=== PATIENT | male | born 1985 ===

== ENCOUNTER 2016-07-12 02:07 | Inpatient (IN) ==
[2016-07-12] MEDS ORDERED: ONDANSETRON 4 MG/2 ML VIAL IV STA (03:02)
[2016-07-12] MEDS ORDERED: HYDROmorphone 2 MG/1 ML VIAL IV STA (03:02)
[2016-07-12 03:07] LABS: Basophils # 0.1 10*3/uL (0.0-0.2); Basophils % 0.3 % (0.0-0.8); Eosinophils # 0.1 10*3/uL (0.0-0.87); Eosinophils % 0.3 % (0.00-10.9); Hematocrit 48.8 VOL% (42.0-52.0); Hemoglobin 16.4 GM/DL (14.0-18.0); Immature Granulocytes % 0.8 %; Lymphocytes # 2.5 10*3/uL (1.4-4.0); Lymphocytes % 10.2 % (21.2-54.2); Mean Corpuscular HGB Conc 33.6 GM/DL (32-36); Mean Corpuscular Hemoglobin 29 PG (27-34); Mean Corpuscular Volume 87.3 FL (87-102); Mean Platelet Volume 13.2 FL (9.6-12.0); Monocytes # 1.7 10*3/uL (0.11-0.8); Neutrophils # 19.7 10*3/uL (1.4-7.4); Neutrophils % 81.4 % (38.7-73.9); Platelet Count 143 T/CUMM (130-400); Red Blood Count 5.59 MC/CUMM (3.8-5.5); Red Cell Distribution Width 12.6 % (9.3-17.3); White Blood Count 24.2 T/CUMM (4-12)
[2016-07-12 03:23] LABS: Apearance,Urine CLEAR (Clear); Bilirubin,Urine Negative (Negative); Blood, Urine Moderate mg/dL (Negative); Glucose,Urine (UA) >=500 mg/dL (Negative); Ketones,Urine 20 mg/dL (Negative); Nitrite,Urine Negative (Negative); Protein,Urine 30 MG/DL; RBC,Urine 1 /HPF (0-4); Urine Color Yellow (Yellow); Urine Specific Gravity 1.017 (1.001-1.035); Urine Urobilinogen < 2.0 EU/DL (0.2-1.0); WBC,Urine 1 /HPF (0-6)
[2016-07-12 03:42] LABS: Band Neutrophils 3 % (0-10); Lymphocytes 12 % (20-55); Metamyelocytes 1 %; Platelet Estimate Normal; Segmented Neutrophils 77 % (50-85); Total Cells Counted 100
[2016-07-12] MEDS ORDERED: HYDROmorphone 2 MG/1 ML VIAL ONE (03:59)
[2016-07-12] MEDS ORDERED: ONDANSETRON 4 MG/2 ML VIAL ONE (04:00)
[2016-07-12] MEDS ORDERED: HYDROmorphone 2 MG/1 ML VIAL IV PRN (04:11)
--- NOTE | 2016-07-12 04:11 | Emergency Department Note ---
Iraida Teresa Sierra, am scribing for, and in the presence of, Akua Gil DO 03:04. Jeffery Teresa Catherine, DO, personally performed the services described in this documentation, ascribed by Maureen Khoury in my presence, and it is both accurate and complete 411 . Arrival - Arrival Chief Complaint: Abdominal / Flank Pain ED Nursing Triage Note: C/O RLQ abd pain. Onset Tuesday worsening tonight. Pt was seen at [facility] and a CT scan was performed that showed a perforated appendix. Pt was given 1 gram Rocephin [employer] RO[employer] HELPER Mode of Arrival: Stretcher Limitations: No Limitations Source: Patient Time Seen by Provider: 07/12/16 02:26 - History of Present Illness HPI Narrative: Pt is a 31 y/o male that was transferred to the ED from [facility] via EMS with c/o RLQ abdominal pain that has worsened for 4 days now. Pt was seen at [facility] and a CT scan was preformed that indicated a perforated appendix. Pt denies any medical problems or taking daily medications. Pt denies alcohol or drug uses but admits he smokes about a pack per day of cigarettes. Pt states he was given morphine at [facility]. No other complaints/pain in ED. Onset (ago): day(s) Consistency: constant Severity: moderate Severity scale (1-10): 6 Quality: sharp Allergies/Adverse Reactions: Allergies Allergy/AdvReac Type Severity Reaction Status Date / Time Penicillins Allergy Intermediate RASH Verified 07/12/16 02:22 Home Medications: Home Medications Medication Instructions Recorded Confirmed Type No Known Home Medications [No 07/12/16 07/12/16 History Known Home Medications] Review of System - Review of System 12 point system: reviewed and no additional remarkable complaints except as stated - Review of System Constitutional: Absent: chills, fever Respiratory: Absent: cough Cardiovascular: Absent: chest pain Gastrointestinal: Present: abdominal pain (RLQ abdominal pain), nausea. Absent : vomiting, diarrhea Musculoskeletal: Absent: arm pain, back pain, leg pain, neck pain Skin: Absent: rash Neurological: Absent: headache Psychiatric: Absent: anxiety Medical,Surgical,& Family Hx - Medical History Medical History: noncontributory - Surgical History Surgical History: noncontributory - Family History Family History: noncontributory - Social History Smoking Status: Current every day smoker Frequency of Alcohol Use: None Type of Drug Use: None Marital Status: Unknown Functional capacity: independent ambulation Exam Vital Signs: Vital Signs Temperature 98.3 F 07/12/16 02:07 Pulse Rate 100 H 07/12/16 02:07 Respiratory Rate 20 07/12/16 02:07 Blood Pressure 139/87 07/12/16 02:07 O2 Sat by Pulse Oximetry 99 07/12/16 02:07 - General General appearance: alert, in no apparent distress - Head Head exam: Present: atraumatic, normocephalic - Eye Eye exam: Present: PERRL, EOMI - ENT ENT exam: Present: mucous membranes moist. Absent: mucous membranes dry - Neck Neck exam: Present: full ROM. Absent: tenderness - Chest Chest inspection: Present: symmetric chest wall rise. Absent: tenderness - Respiratory Respiratory exam: Present: normal lung sounds bilaterally. Absent: respiratory distress - Cardiovascular Cardiovascular exam: Present: regular rate, normal rhythm, normal heart sounds - Abdominal Exam Abdominal exam: Present: soft, tenderness (RLQ tenderness), normal bowel sounds. Absent: distention, guarding, rebound, diminished bowel sounds - Extremities Exam Extremities exam: Present: full ROM. Absent: tenderness - Back Exam Back exam: Present: normal inspection, full ROM. Absent: tenderness - Neurological Exam Neurological exam: Present: alert, oriented X3, CN II-XII intact. Absent: motor sensory deficit - Psychiatric Psychiatric exam: Present: normal affect, normal mood - Skin Skin exam: Present: warm, dry Course Course Narrative: This is a 31-year-old male who is transported down here from the [facility] for evaluation of a perforated appendix. The patient states that he began having pain on Tuesday evening. He did not seek medical care until today. He stated he just had continued pain he said some nausea and some vomiting. He denies any fever or chills he has no other medical problems. Physical exam the patient is awake and alert his vital signs are stable HEENT exam is normal his neck is supple heart is regular rate and rhythm his lungs are clear in the anterior thompson abdomen is rounded soft he has tenderness localized to the right lower quadrant does have pain to deep palpation. His bowel sounds are infrequent. His extremities are intact neurologic exam is nonfocal. Treatment I repeated his lab work was started some IV fluids he did receive some pain meds. I spoke to the surgeon electrician supervisor substation about his CT findings which do show a ruptured appendix. We will be placing him inside the hospital on IV antibiotics for further surgical evaluation. - Consultations Consultation #1: Dr. Castillo has accepted the patient for admission at this time. Time: 04:10 Results - Labs CBC & BMP: 07/12/16 02:14 Lab Results: I have reviewed the patients labs Labs: Laboratory Tests 07/12/16 02:14 WBC 24.2 H RBC 5.59 H MPV 13.2 H Neut % (Auto) 81.4 H Lymph % (Auto) 10.2 L Neut # (Auto) 19.7 H [place] # (Auto) 1.7 H Laboratory Tests 07/12/16 03:02 Urine Color Yellow Urine Appearance Clear Urine pH 6.0 Ur Specific [place] 1.017 Urine Protein 30 Urine Glucose (UA) >=500 Urine Ketones 20 Urine Blood Moderate Urine Nitrate Negative Urine Bilirubin Negative Urine Urobilinogen < 2.0 H Urine Leukocytes Negative Urine RBC 1 Urine WBC 1 Laboratory Tests 07/12/16 02:14 Lymphocytes 12 L - Diagnostic Findings Procedure: CT Abdomen and Pelvis: report reviewed by me (ruptured appendix) Disposition Clinical Impression: Ruptured appendix Case discussed with: patient Disposition: Still a Patient Condition: Stable Time of Disposition: 04:11
[2016-07-12 04:21] LABS: Lactic Acid 1.4 MMOL/L (0.4-2.0)
[2016-07-12 04:22] LABS: Albumin 3.5 G/DL (3.4-5.0); Bilirubin,Total 1.3 MG/DL (0.2-1.0); Calcium 8.2 MG/DL (8.5-10.1); Magnesium 2.2 MG/DL (1.8-2.4); Osmolality,Calculated 267.7 MOS/KG (273-304); Total Protein 7.6 G/DL (6.4-8.3)
[2016-07-12] MEDS: SODIUM CHLORIDE 0.9% 1,000 ML IV SCH ×3 (05:11→23:35)
--- NOTE | 2016-07-12 06:57 | General Surg History&Physical ---
Assessment and Plan - Time spent with patient Time spent with patient: Less than 30 minutes (1) Acute appendicitis with appendiceal abscess Status: Acute Assessment and plan: This appears to represent a subacute appendicitis with periappendiceal phlegmon and early abscess formation. I discussed the options for treatment with the patient and his family. I have recommended against going straight ahead for surgery and have recommended a trial of treatment with antibiotics to see if we can treat the periappendicitis and then look at possibly later interval appendectomy. I explained that his course of treatment will be guided by his clinical response. We will probably get a follow-up CT scan over the next few days to see if this is responding her see if this is coalesced into a discrete abscess that could be drained. I am worried that acute surgical intervention in this morbidly obese patient could result in bowel injury or at best a large open wound in his lower abdominal wall pannus. They are in agreement with the plan which they understand can change based on whether or not he responds clinically Current Visit: Yes History of Present Illness Chief complaint: abdominal pain History of present illness: Mr. Kelsey is a 31 year old male With 4 days of abdominal pain that started in his upper mid abdomen and then localized in his right lower quadrant. This pain is constant and moderate in severity. The pain does not radiate. It is worse if he moves and feels better if he lays still. He has had less appetite but has not had nausea or vomiting. He states that he has had some fever and maybe some chills. He had a CT scan done at [facility] and they did not send down the images but the report stated that there was an appendiceal phlegmon. Home Medications Medication Instructions Recorded Confirmed Type No Known Home Medications [No 07/12/16 07/12/16 History Known Home Medications] Allergies Allergy/AdvReac Type Severity Reaction Status Date / Time Penicillins Allergy Intermediate RASH Verified 07/12/16 02:22 Medical,Surgical,& Family Hx - Medical History Medical History: noncontributory - Surgical History Surgical History: noncontributory - Family History Family History: noncontributory - Social History Smoking Status: Current every day smoker Frequency of Alcohol Use: None Type of Drug Use: None Exam - Constitutional Vitals: Period Temp Pulse Resp BP Sys/Cardozo Pulse Ox Last 24 Hr 99.6 F 98-98 17-20 144-145/69-89 94-94 General appearance: no acute distress, morbidly obese - Head Head exam: Present: normocephalic - Eye Eye exam: Absent: scleral icterus - ENT Mouth exam: Present: normal voice - Neck Neck exam: Present: trachea midline. Absent: tenderness - Respiratory Respiratory exam: Present: clear to auscultation bilaterally. Absent: accessory muscle use - Cardiovascular Cardiovascular exam: Present: RRR - GI/Abdominal GI/Abdominal exam: Present: normal bowel sounds, mass, tenderness, soft. Absent : distended, guarding, rebound - Extremities Exam Extremities exam: Absent: edema - Neurological Exam Neurological exam: Present: alert, oriented X3. Absent: motor sensory deficit Speech: Present: normal - Skin Skin exam: Present: normal color - Constitutional Constitutional: Present: anorexia, chills, fever(s). Absent: weight loss - EENT Nose, mouth and throat: Absent: dysphagia - Cardiovascular Cardiovascular: Absent: chest pain at rest, chest pain with activity, dyspnea, dyspnea on exertion, syncope - Respiratory Respiratory: Absent: cough, dyspnea, hemoptysis, dyspnea on exertion - Gastrointestinal Gastrointestinal: Present: abdominal pain, diarrhea. Absent: hematemesis, hematochezia, melena, nausea, vomiting, jaundice - Genitourinary Genitourinary: Absent: dysuria, hematuria - Musculoskeletal Musculoskeletal: Absent: back pain - Neurological Neurological: Absent: focal weakness, syncope - Endocrine Endocrine: Absent: polyuria Hematologic/Lymphatic: Absent: easy bleeding, easy bruising Results - Labs CBC & BMP: 07/12/16 02:14 07/12/16 03:58 Lab Results: I have reviewed the past 24 hour labs
[2016-07-12] MEDS: HYDROmorphone 2 MG/1 ML VIAL IV PRN ×4 (13:35→23:39)
[2016-07-13 07:19] LABS: Basophils % 0.2 % (0.0-0.8); Eosinophils # 0.1 10*3/uL (0.0-0.87); Eosinophils % 0.6 % (0.00-10.9); Hematocrit 38.3 VOL% (42.0-52.0); Immature Granulocytes % 0.6 %; Immature Granulocytes Absolute 0.07 #; Lymphocytes # 1.7 10*3/uL (1.4-4.0); Lymphocytes % 13.4 % (21.2-54.2); Mean Corpuscular HGB Conc 33.7 GM/DL (32-36); Mean Corpuscular Hemoglobin 29 PG (27-34); Mean Corpuscular Volume 86.8 FL (87-102); Mean Platelet Volume 12.5 FL (9.6-12.0); Monocytes # 1.2 10*3/uL (0.11-0.8); Monocytes % 9.4 % (1.7-12.7); Neutrophils # 9.7 10*3/uL (1.4-7.4); Neutrophils % 75.8 % (38.7-73.9); Platelet Count 119 T/CUMM (130-400); Red Blood Count 4.41 MC/CUMM (3.8-5.5); Red Cell Distribution Width 12.2 % (9.3-17.3)
--- NOTE | 2016-07-13 07:22 | General Surgery Progress Note ---
Assessment and Plan (1) Acute appendicitis with appendiceal abscess Status: Acute Assessment and plan: This appears to represent a subacute appendicitis with periappendiceal phlegmon and early abscess formation. I discussed the options for treatment with the patient and his family. I have recommended against going straight ahead for surgery and have recommended a trial of treatment with antibiotics to see if we can treat the periappendicitis and then look at possibly later interval appendectomy. I explained that his course of treatment will be guided by his clinical response. We will probably get a follow-up CT scan over the next few days to see if this is responding her see if this is coalesced into a discrete abscess that could be drained. I am worried that acute surgical intervention in this morbidly obese patient could result in bowel injury or at best a large open wound in his lower abdominal wall pannus. They are in agreement with the plan which they understand can change based on whether or not he responds clinically 07/13: He feels a little better and has less pain but still has right lower quadrant pain and tenderness that is less than yesterday. There is less fullness overall but this is difficult to appreciate because of his severe morbid obesity. I'm going to check a follow-up CT scan. He is had low-grade temperature. We will see if he has a well-defined abscess to drain. This will be better if we could treat him with drainage and antibiotics rather than initial surgery as I suspect that we would require an open procedure and a very difficult case probably a large open wound in this morbidly obese patient. I fear that this could cause a great deal of morbidity. Current Visit: Yes Subjective Patient reports: Present: feels better, still having pain, pain is less, fever. Absent: nausea, vomiting Exam - Constitutional Vitals: Period Temp Pulse Resp BP Sys/Cardozo Pulse Ox Last 24 Hr 98.2 F-100.4 F 93-106 18-20 112-136/54-73 97-99 General appearance: no acute distress, morbidly obese - Eye Eye exam: Absent: scleral icterus - ENT Mouth exam: Present: normal voice - Respiratory Respiratory exam: Present: clear to auscultation bilaterally. Absent: accessory muscle use - GI/Abdominal GI/Abdominal exam: Present: tenderness, soft. Absent: distended, mass, rebound - Neurological Exam Neurological exam: Present: alert, oriented X3 Results - Labs CBC & BMP: 07/12/16 02:14 07/12/16 03:58 Lab Results: I have reviewed the past 24 hour labs
[2016-07-13 07:28] LABS: Hemoglobin 12.9 GM/DL (14.0-18.0); White Blood Count 12.7 T/CUMM (4-12)
[2016-07-13] MEDS: SODIUM CHLORIDE 0.9% 1,000 ML IV SCH ×2 (07:44→22:18)
[2016-07-13 07:45] LABS: Calcium 7.5 MG/DL (8.5-10.1); Osmolality,Calculated 271.1 MOS/KG (273-304); Potassium 3.8 MMOL/L (3.5-5.1)
[2016-07-13] MEDS: HYDROmorphone 2 MG/1 ML VIAL IV PRN ×4 (07:46→22:17)
[2016-07-13] MEDS: ONDANSETRON 4 MG/2 ML VIAL IV PRN (08:42)
--- NOTE | 2016-07-13 10:33 | CT Report ---
CT abdomen pelvis Indication: Appendiceal abscess Comparison: 11 July 2016 Technique: Axial CT imaging of the abdomen and pelvis is performed with intravenous and oral contrast. Contrast dose is 100 cc of Omnipaque 350. Findings: Cardiac and lung bases are within normal limits CT abdomen: The liver spleen pancreas and adrenal glands are normal in size and enhancement. No evidence of focal lesion is demonstrated in these solid organs. Kidneys are normal in size and enhancement. No evidence of hydronephrosis or nephrolithiasis is seen. There is an enlarging abscess with air-fluid level in the right lower quadrant posterior to the cecum 5.2 x 3.9 cm. Previous measurement was 3.1 x 2.6 cm. Large amount of adjacent stranding is present. The appendix is not clearly seen. There is some thickening of the posterior cecum. This was present on previous exam. The bowel caliber is normal and no other wall thickening or adjacent inflammatory change is seen. No evidence of free fluid or free air is present. CT pelvis: Small amount of free fluid is seen in the pelvis. The pelvic bowel appears within normal limits. Bladder shows no evidence of abnormality. The pelvic organs show no evidence of abnormality. Impression: Enlarging abscess in the right lower quadrant as described above. This CT exam was performed using one or more the following dose reduction techniques: Automated exposure control, adjustment of the MA and/or KV according to patient size, or use of iterative reconstruction technique. PROCEDURE INTERPRETED AT [facility] DEPARTMENT OF RADIOLOGY Final Report Signed by: Dr. Bernardino Patterson
--- NOTE | 2016-07-13 14:43 | Inventional Radiology Consult ---
Assessment and Plan - Time spent with patient Time spent with patient: Less than 30 minutes (1) Acute appendicitis with appendiceal abscess Problem details: f/u CT scan shows increasing size of periappendiceal collection Status: Acute Assessment and plan: plan for CT guided drain catheter placement today Current Visit: Yes (2) Ruptured appendix Problem details: now with developing abscess Status: Acute Assessment and plan: plan for drain catheter placement today Current Visit: Yes IR Consult - Data of Consult Patient: new to practice Consult date: 07/13/16 Requesting Physician: Monico Castillo III. - Consult Narrative Reason for consult: periappendiceal abscess History of present illness: Low is a 31 year old M with right lower quadrant pain and subacute appendicitis on CT imaging. The follow up CT shows a small abscess developing. The patient is morbidly obese and surgery would like to treat with a drain, which could be much more tolerable for this patient. WBCs trending down but still with increased RLQ pain since admission. No other significant medical or surgical history. ROS otherwise negative. - Home Medications and Allergies Home Medications: Home Medications Medication Instructions Recorded Confirmed Type No Known Home Medications [No 07/12/16 07/12/16 History Known Home Medications] Allergies/Adverse Reactions: Allergies Allergy/AdvReac Type Severity Reaction Status Date / Time Penicillins Allergy Intermediate RASH Verified 07/12/16 02:22 12 point system: reviewed and no additional remarkable complaints except as stated (see HPI) Medical,Surgical,& Family Hx - Social History Smoking Status: Current every day smoker Frequency of Alcohol Use: None Type of Drug Use: None Exam - Labs CBC & BMP: 07/13/16 06:15 07/13/16 06:15 Lab Results: I have reviewed the past 24 hour labs Image Studies: CT from OSH and from [facility] - Constitutional Vitals: Period Temp Pulse Resp BP Sys/Cardozo Pulse Ox Last 24 Hr 98.2 F-100.1 F 90-100 18-20 112-147/57-78 97-99 General appearance: morbidly obese - Eye Eye exam: Present: EOMI - Respiratory Respiratory exam: Present: clear to auscultation bilaterally (distant breath sounds) - Cardiovascular Cardiovascular exam: Present: regular rate and rhythm - GI/Abdominal GI/Abdominal exam: Present: normal bowel sounds, guarding (RLQ), tenderness (RLQ ), rebound (RLQ) - Neurological Exam Neurological exam: Present: alert, oriented X3 - Psychiatric Psychiatric exam: Present: normal affect, normal mood - Skin Skin exam: Present: normal color, dry
[2016-07-13] MEDS ORDERED: MIDAZOLAM 2 MG/2 ML VIAL IV ONE (14:46)
[2016-07-13] MEDS ORDERED: fentaNYL 100 MCG/2 ML VIAL IV ONE (14:46)
[2016-07-13] MEDS ORDERED: MIDAZOLAM 2 MG/2 ML VIAL ONE (15:23)
[2016-07-13] MEDS ORDERED: fentaNYL 100 MCG/2 ML VIAL ONE (15:23)
--- NOTE | 2016-07-13 16:16 | Post Interventional Procedure ---
Pre-op diagnosis: periappendiceal abscess Post-op diagnosis: same Procedure: CT guided abscess drain placement Contrast: none Flouroscopy: none Radiologist: Pedro Caputo Anesthesia: local, conscious sedation Medications: 1 mg IV versed and 50 mcg IV Fentanyl Total Sedation Time: 15 min Specimens: other (purulent material sent for Gs/Cx) Estimated blood loss: none Complications: none Condition: stable Description/Findings: 10 Nigerien drainage catheter placed into the periappendiceal fluid/air collection. Approximately 25 mL of purulent malodorous material removed. A sample was sent for Gram stain/culture. Catheter drainage should be recorded. When output has decreased to less than 10 L per day for 2 consecutive days, consider repeat imaging prior to drain removal. Assessment and Plan - Time spent with patient Time spent with patient: Less than 30 minutes (1) Acute appendicitis with appendiceal abscess Problem details: f/u CT scan shows increasing size of periappendiceal collection Status: Acute Assessment and plan: plan for CT guided drain catheter placement today Current Visit: Yes (2) Ruptured appendix Problem details: now with developing abscess Status: Acute Assessment and plan: plan for drain catheter placement today Current Visit: Yes
--- NOTE | 2016-07-13 16:24 | CT Report ---
CT abscess drainage appendicea Abscess drainage using CT guidance Clinical Information: 31-year-old male with morbid obesity and subacute appendicitis with right lower quadrant pain. Follow-up CT scanning performed today shows enlargement of the periappendiceal abscess/fluid collection within the right lower quadrant. Surgery suggests this to be a difficult case given the patient's morbid obesity and has requested percutaneous drainage. Physician[s]: Dr. Caputo Procedure: The patient was advised of the benefits, risks, and alternatives of the procedure and informed consent was obtained. A time out was performed with verification of the patient's name, MRN, site of procedure, and type of procedure to be performed. Moderate sedation was performed by the physician including the presence of an independent trained observer that assisted in monitoring the patient's level of consciousness and physiological status. Following the administration of 1 mg intravenous Versed and 50 mcg intravenous fentanyl and the physician spent 30 minutes of continuous [id number] time with the patient. The patient was placed in the supine on the CT gantry and a scan was performed through the region of interest. This demonstrates stranding throughout the right lower quadrant mesenteric fat and the perivesicle fluid collection with layering air, as seen on prior diagnostic imaging. After marking the overlying skin, the patient was prepped and draped in the usual sterile fashion. The soft tissues overlying the anticipated puncture site were anesthetized with lidocaine. Through this anesthetized region, a 20 G AccuStick needle was passed into the fluid collection with intermittent CT fluoroscopic guidance. Malodorous purulent material was aspirated. An Amplatz wire was advanced into the fluid collection, over which a 10 Amharic Cook all-purpose drain was passed. A fluid specimen was aspirated. Subsequent localized CT-scanning was performed to confirm the catheter location. The catheter was then locked, sutured in position with Percu-Stay device and placed to gravity drainage. The fluid specimen was labeled with the patient's name and medical record number and sent to the laboratory for further analysis. The patient tolerated the procedure well and was returned to the PRU in stable condition. EBL: < 5 mL. Complications: None. Total number of images for this study: 216 Conclusion: 1. Successful placement of a10 Amharic pigtail drain in a right lower quadrant periappendiceal fluid collection. 2. The catheter should be flushed with 10 ml of normal saline every 24 hours. Drainage should be recorded q. shift minus flush. 3. The primary team should contact Interventional Radiology when output is less than 10 ml per day for two consecutive days. PROCEDURE INTERPRETED AT [facility] DEPARTMENT OF RADIOLOGY Final Report Signed by: Pedro Caputo
[2016-07-13] MEDS ORDERED: HYDROmorphone 2 MG/1 ML VIAL IV ONE (18:26)
[2016-07-13] MEDS: KETOROLAC 30 MG/1 ML VIAL IV SCH (18:35)
[2016-07-13] MEDS: ACETAMINOPHEN 325 MG TABLET PO PRN (18:36)
[2016-07-14] MEDS: KETOROLAC 30 MG/1 ML VIAL IV SCH ×4 (01:32→17:40)
[2016-07-14] MEDS: HYDROmorphone 2 MG/1 ML VIAL IV PRN ×5 (01:33→22:28)
[2016-07-14] MEDS: ACETAMINOPHEN 325 MG TABLET PO PRN ×2 (02:24→17:03)
[2016-07-14] MEDS: ONDANSETRON 4 MG/2 ML VIAL IV PRN (03:54)
[2016-07-14] MEDS: SODIUM CHLORIDE 0.9% 1,000 ML IV SCH ×2 (05:33→11:50)
[2016-07-14 06:55] LABS: Basophils % 0.3 % (0.0-0.8); Eosinophils % 0.1 % (0.00-10.9); Hematocrit 37.6 VOL% (42.0-52.0); Hemoglobin 12.6 GM/DL (14.0-18.0); Immature Granulocytes % 0.7 %; Immature Granulocytes Absolute 0.11 #; Lymphocytes # 0.9 10*3/uL (1.4-4.0); Lymphocytes % 5.7 % (21.2-54.2); Mean Corpuscular HGB Conc 33.5 GM/DL (32-36); Mean Corpuscular Hemoglobin 30 PG (27-34); Mean Corpuscular Volume 88.1 FL (87-102); Mean Platelet Volume 11.7 FL (9.6-12.0); Monocytes # 1.1 10*3/uL (0.11-0.8); Neutrophils # 13.4 10*3/uL (1.4-7.4); Neutrophils % 86.2 % (38.7-73.9); Platelet Count 124 T/CUMM (130-400); Red Blood Count 4.27 MC/CUMM (3.8-5.5); Red Cell Distribution Width 12.1 % (9.3-17.3); White Blood Count 15.5 T/CUMM (4-12)
[2016-07-14 07:20] LABS: Calcium 7.6 MG/DL (8.5-10.1); Osmolality,Calculated 269.5 MOS/KG (273-304); Potassium 3.7 MMOL/L (3.5-5.1)
--- NOTE | 2016-07-14 08:18 | General Surgery Progress Note ---
Assessment and Plan (1) Acute appendicitis with appendiceal abscess Problem details: f/u CT scan shows increasing size of periappendiceal collection Status: Acute Assessment and plan: This appears to represent a subacute appendicitis with periappendiceal phlegmon and early abscess formation. I discussed the options for treatment with the patient and his family. I have recommended against going straight ahead for surgery and have recommended a trial of treatment with antibiotics to see if we can treat the periappendicitis and then look at possibly later interval appendectomy. I explained that his course of treatment will be guided by his clinical response. We will probably get a follow-up CT scan over the next few days to see if this is responding her see if this is coalesced into a discrete abscess that could be drained. I am worried that acute surgical intervention in this morbidly obese patient could result in bowel injury or at best a large open wound in his lower abdominal wall pannus. They are in agreement with the plan which they understand can change based on whether or not he responds clinically 07/13: He feels a little better and has less pain but still has right lower quadrant pain and tenderness that is less than yesterday. There is less fullness overall but this is difficult to appreciate because of his severe morbid obesity. I'm going to check a follow-up CT scan. He is had low-grade temperature. We will see if he has a well-defined abscess to drain. This will be better if we could treat him with drainage and antibiotics rather than initial surgery as I suspect that we would require an open procedure and a very difficult case probably a large open wound in this morbidly obese patient. I fear that this could cause a great deal of morbidity. 07/14: He feels better and has much less abdominal pain since his percutaneous drainage. The mass effect and tenderness in his right side has diminished. He is hungry. He is had fever which is not surprising. We will continue IV antibiotics. We should get some cultures back on the drainage fluid. He is hungry and I think we can go ahead and try a diet. Current Visit: Yes Subjective Patient reports: Present: feels better, pain is less, fever. Absent: nausea, vomiting, shortness of breath Exam - Constitutional Vitals: Period Temp Pulse Resp BP Sys/Cardozo Pulse Ox Last 24 Hr 98.8 F-103 F 86-115 16-20 118-153/50-84 95-100 General appearance: no acute distress, morbidly obese - Eye Eye exam: Absent: scleral icterus - Respiratory Respiratory exam: Absent: accessory muscle use - GI/Abdominal GI/Abdominal exam: Present: soft. Absent: distended, mass, tenderness Results - Labs CBC & BMP: 07/14/16 06:27 07/14/16 06:27 Lab Results: I have reviewed the past 24 hour labs
[2016-07-15] MEDS: KETOROLAC 30 MG/1 ML VIAL IV SCH ×4 (00:24→18:02)
[2016-07-15] MEDS: SODIUM CHLORIDE 0.9% 1,000 ML IV SCH ×4 (00:24→20:45)
[2016-07-15] MEDS: ACETAMINOPHEN 325 MG TABLET PO PRN (00:34)
[2016-07-15] MEDS: HYDROmorphone 2 MG/1 ML VIAL IV PRN ×6 (01:43→20:46)
[2016-07-15] MEDS: ONDANSETRON 4 MG/2 ML VIAL IV PRN (04:59)
--- NOTE | 2016-07-15 10:41 | General Surgery Progress Note ---
Assessment and Plan (1) Acute appendicitis with appendiceal abscess Problem details: f/u CT scan shows increasing size of periappendiceal collection Status: Acute Assessment and plan: This appears to represent a subacute appendicitis with periappendiceal phlegmon and early abscess formation. I discussed the options for treatment with the patient and his family. I have recommended against going straight ahead for surgery and have recommended a trial of treatment with antibiotics to see if we can treat the periappendicitis and then look at possibly later interval appendectomy. I explained that his course of treatment will be guided by his clinical response. We will probably get a follow-up CT scan over the next few days to see if this is responding her see if this is coalesced into a discrete abscess that could be drained. I am worried that acute surgical intervention in this morbidly obese patient could result in bowel injury or at best a large open wound in his lower abdominal wall pannus. They are in agreement with the plan which they understand can change based on whether or not he responds clinically 07/13: He feels a little better and has less pain but still has right lower quadrant pain and tenderness that is less than yesterday. There is less fullness overall but this is difficult to appreciate because of his severe morbid obesity. I'm going to check a follow-up CT scan. He is had low-grade temperature. We will see if he has a well-defined abscess to drain. This will be better if we could treat him with drainage and antibiotics rather than initial surgery as I suspect that we would require an open procedure and a very difficult case probably a large open wound in this morbidly obese patient. I fear that this could cause a great deal of morbidity. 07/14: He feels better and has much less abdominal pain since his percutaneous drainage. The mass effect and tenderness in his right side has diminished. He is hungry. He is had fever which is not surprising. We will continue IV antibiotics. We should get some cultures back on the drainage fluid. He is hungry and I think we can go ahead and try a diet. 07/15: Please note that this is a late entry progress note as I saw the patient early this morning. He feels much better. He has much less pain and is hungry. He is still having some fever and elevated white blood cell count. We need to continue his IV antibiotics for another couple of days at least. Current Visit: Yes Subjective Patient reports: Present: feels better, pain is less, fever. Absent: nausea, vomiting Exam - Constitutional Vitals: Period Temp Pulse Resp BP Sys/Cardozo Pulse Ox Last 24 Hr 98 F-101.5 F 78-103 16-20 118-144/55-78 94-98 General appearance: no acute distress, morbidly obese - Eye Eye exam: Absent: scleral icterus - ENT Mouth exam: Present: normal voice - Respiratory Respiratory exam: Absent: accessory muscle use - GI/Abdominal GI/Abdominal exam: Present: soft. Absent: distended, tenderness, rebound Results - Labs CBC & BMP: 07/14/16 06:27 07/14/16 06:27 Lab Results: I have reviewed the past 24 hour labs
[2016-07-16] MEDS: HYDROmorphone 2 MG/1 ML VIAL IV PRN ×2 (00:12→20:10)
[2016-07-16] MEDS: KETOROLAC 30 MG/1 ML VIAL IV SCH ×4 (00:12→19:16)
[2016-07-16] MEDS: SODIUM CHLORIDE 0.9% 1,000 ML IV SCH ×3 (05:34→12:27)
[2016-07-16 08:56] LABS: Basophils % 0.3 % (0.0-0.8); Eosinophils # 0.1 10*3/uL (0.0-0.87); Eosinophils % 1.4 % (0.00-10.9); Hematocrit 36.3 VOL% (42.0-52.0); Hemoglobin 12.2 GM/DL (14.0-18.0); Immature Granulocytes % 0.6 %; Immature Granulocytes Absolute 0.05 #; Lymphocytes % 11.4 % (21.2-54.2); Mean Corpuscular HGB Conc 33.6 GM/DL (32-36); Mean Corpuscular Hemoglobin 29 PG (27-34); Mean Corpuscular Volume 87.5 FL (87-102); Mean Platelet Volume 12.3 FL (9.6-12.0); Monocytes # 0.6 10*3/uL (0.11-0.8); Monocytes % 6.5 % (1.7-12.7); Neutrophils # 6.9 10*3/uL (1.4-7.4); Neutrophils % 79.8 % (38.7-73.9); Platelet Count 117 T/CUMM (130-400); Red Blood Count 4.15 MC/CUMM (3.8-5.5); Red Cell Distribution Width 12.2 % (9.3-17.3); White Blood Count 8.6 T/CUMM (4-12)
[2016-07-16 09:21] LABS: Band Neutrophils 1 % (0-10); Eosinophils 2 % (0-10); Hypochromasia 1+; Lymphocytes 9 % (20-55); Platelet Estimate Decreased; Segmented Neutrophils 81 % (50-85); Total Cells Counted 100
--- NOTE | 2016-07-16 09:54 | General Surgery Progress Note ---
Assessment and Plan (1) Acute appendicitis with appendiceal abscess Problem details: f/u CT scan shows increasing size of periappendiceal collection Status: Acute Assessment and plan: This appears to represent a subacute appendicitis with periappendiceal phlegmon and early abscess formation. I discussed the options for treatment with the patient and his family. I have recommended against going straight ahead for surgery and have recommended a trial of treatment with antibiotics to see if we can treat the periappendicitis and then look at possibly later interval appendectomy. I explained that his course of treatment will be guided by his clinical response. We will probably get a follow-up CT scan over the next few days to see if this is responding her see if this is coalesced into a discrete abscess that could be drained. I am worried that acute surgical intervention in this morbidly obese patient could result in bowel injury or at best a large open wound in his lower abdominal wall pannus. They are in agreement with the plan which they understand can change based on whether or not he responds clinically 07/13: He feels a little better and has less pain but still has right lower quadrant pain and tenderness that is less than yesterday. There is less fullness overall but this is difficult to appreciate because of his severe morbid obesity. I'm going to check a follow-up CT scan. He is had low-grade temperature. We will see if he has a well-defined abscess to drain. This will be better if we could treat him with drainage and antibiotics rather than initial surgery as I suspect that we would require an open procedure and a very difficult case probably a large open wound in this morbidly obese patient. I fear that this could cause a great deal of morbidity. 07/14: He feels better and has much less abdominal pain since his percutaneous drainage. The mass effect and tenderness in his right side has diminished. He is hungry. He is had fever which is not surprising. We will continue IV antibiotics. We should get some cultures back on the drainage fluid. He is hungry and I think we can go ahead and try a diet. 07/15: Please note that this is a late entry progress note as I saw the patient early this morning. He feels much better. He has much less pain and is hungry. He is still having some fever and elevated white blood cell count. We need to continue his IV antibiotics for another couple of days at least. 07/16: He looks and feels much better. His white blood cell count is coming down. His abdomen is benign on exam. He had a very large abscess and it is growing Escherichia coli. I would continue the IV antibiotics through the weekend and we could probably order a follow-up CT scan on Tuesday. Hopefully he will have complete resolution of the abscess at that point. Current Visit: Yes Subjective Patient reports: Present: feels better, pain is less. Absent: nausea, vomiting , fever Exam - Constitutional Vitals: Period Temp Pulse Resp BP Sys/Cardozo Pulse Ox Last 24 Hr 97.5 F-99.1 F 85-96 16-20 99-133/50-75 96-97 General appearance: no acute distress - Head Head exam: Present: normocephalic - Eye Eye exam: Absent: scleral icterus - GI/Abdominal GI/Abdominal exam: Present: soft. Absent: distended, tenderness, rebound Results - Labs CBC & BMP: 07/16/16 08:44 07/14/16 06:27 Lab Results: I have reviewed the past 24 hour labs
[2016-07-17] MEDS: SODIUM CHLORIDE 0.9% 1,000 ML IV SCH ×3 (00:39→13:58)
[2016-07-17] MEDS: KETOROLAC 30 MG/1 ML VIAL IV SCH ×4 (00:40→18:53)
[2016-07-17] MEDS: HYDROmorphone 2 MG/1 ML VIAL IV PRN ×2 (04:49→08:10)
--- NOTE | 2016-07-17 12:27 | General Surgery Progress Note ---
Assessment and Plan (1) Acute appendicitis with appendiceal abscess Problem details: f/u CT scan shows increasing size of periappendiceal collection Status: Acute Assessment and plan: The patient has responded to percutaneous drainage of his periappendiceal abscess nicely. We will continue drainage over the weekend and antibiotics and see how he does. Current Visit: Yes Subjective Patient reports: Present: no new complaints, feels better, afebrile Exam - Constitutional Vitals: Period Temp Pulse Resp BP Sys/Cardozo Pulse Ox Last 24 Hr 97.2 F-99.6 F 69-95 18-19 114-148/60-84 94-98 General appearance: no acute distress, morbidly obese - Head Head exam: Present: normal inspection, normocephalic - Eye Eye exam: Present: EOMI Pupils: Present: MARIANNA - ENT ENT exam: Present: normal exam Mouth exam: Present: normal external inspection, normal voice - Neck Neck exam: Present: normal inspection, trachea midline - Respiratory Respiratory exam: Present: clear to auscultation bilaterally. Absent: accessory muscle use, chest wall tenderness - Cardiovascular Cardiovascular exam: Present: RRR. Absent: systolic murmur, tachycardia - GI/Abdominal GI/Abdominal exam: Present: normal bowel sounds, soft, other (Pigtail catheter has a small amount of purulent fluid in it.). Absent: tenderness, rebound - Extremities Exam Extremities exam: Present: normal inspection, normal capillary refill - Back Exam Back exam: Present: normal inspection - Neurological Exam Neurological exam: Present: alert, oriented X3 Speech: Present: normal - Skin Skin exam: Present: normal color, warm Results - Labs CBC & BMP: 07/16/16 08:44 07/14/16 06:27 - Diagnostic Findings Procedure: CT Abdomen and Pelvis: image reviewed by me, report reviewed by me
[2016-07-17] MEDS: POLYETHYLENE GLYCOL POWDER 17 GM PACK PO SCH (13:56)
[2016-07-18] MEDS: KETOROLAC 30 MG/1 ML VIAL IV SCH ×3 (00:49→12:59)
[2016-07-18] MEDS: POLYETHYLENE GLYCOL POWDER 17 GM PACK PO SCH (08:24)
--- NOTE | 2016-07-18 22:25 | General Surgery Progress Note ---
Assessment and Plan (1) Acute appendicitis with appendiceal abscess Problem details: f/u CT scan shows increasing size of periappendiceal collection Status: Acute Assessment and plan: The patient seems to be responding to current treatment. Continue current care and allow Dr. Castillo to decide on timing of repeat CT scan tomorrow. Current Visit: Yes Subjective Patient reports: Present: no new complaints, feels better, pain is less, afebrile Exam - Constitutional Vitals: Period Temp Pulse Resp BP Sys/Cardozo Pulse Ox Last 24 Hr 97.8 F-99.5 F 63-86 18-20 128-145/60-83 96-99 General appearance: no acute distress, morbidly obese - Head Head exam: Present: normal inspection, normocephalic - Eye Eye exam: Present: EOMI. Absent: conjunctival injection, scleral icterus Pupils: Present: MARIANNA - ENT ENT exam: Present: normal exam Mouth exam: Present: normal external inspection, normal voice - Neck Neck exam: Present: normal inspection, trachea midline - Respiratory Respiratory exam: Present: clear to auscultation bilaterally. Absent: accessory muscle use, chest wall tenderness - Cardiovascular Cardiovascular exam: Present: RRR. Absent: systolic murmur, tachycardia - GI/Abdominal GI/Abdominal exam: Present: soft, other (Pigtail catheter with some purulent drainage but decreased from yesterday). Absent: tenderness, rebound - Extremities Exam Extremities exam: Present: normal inspection, normal capillary refill - Back Exam Back exam: Present: normal inspection - Neurological Exam Neurological exam: Present: alert, oriented X3 Speech: Present: normal - Skin Skin exam: Present: normal color, warm Results - Labs CBC & BMP: 07/16/16 08:44 07/14/16 06:27
[2016-07-18] MEDS: HYDROmorphone 2 MG/1 ML VIAL IV PRN (22:42)
[2016-07-19 06:28] LABS: Basophils % 0.3 % (0.0-0.8); Eosinophils # 0.3 10*3/uL (0.0-0.87); Eosinophils % 3.6 % (0.00-10.9); Hematocrit 35.3 VOL% (42.0-52.0); Hemoglobin 11.8 GM/DL (14.0-18.0); Immature Granulocytes % 0.7 %; Immature Granulocytes Absolute 0.05 #; Lymphocytes % 28.3 % (21.2-54.2); Mean Corpuscular HGB Conc 33.4 GM/DL (32-36); Mean Corpuscular Hemoglobin 29 PG (27-34); Mean Corpuscular Volume 86.7 FL (87-102); Mean Platelet Volume 11.7 FL (9.6-12.0); Monocytes # 0.7 10*3/uL (0.11-0.8); Monocytes % 10.5 % (1.7-12.7); Neutrophils % 56.6 % (38.7-73.9); Platelet Count 203 T/CUMM (130-400); Red Blood Count 4.07 MC/CUMM (3.8-5.5); Red Cell Distribution Width 12.6 % (9.3-17.3)
[2016-07-19 06:56] LABS: Calcium 7.5 MG/DL (8.5-10.1); Eosinophils 3 % (0-10); Hypochromasia 1+; Lymphocytes 27 % (20-55); Magnesium 2.1 MG/DL (1.8-2.4); Osmolality,Calculated 281.3 MOS/KG (273-304); Platelet Estimate Adequate; Potassium 4.1 MMOL/L (3.5-5.1); Segmented Neutrophils 68 % (50-85); Total Cells Counted 100
--- NOTE | 2016-07-19 07:40 | General Surgery Progress Note ---
Assessment and Plan (1) Acute appendicitis with appendiceal abscess Problem details: f/u CT scan shows increasing size of periappendiceal collection Status: Acute Assessment and plan: This appears to represent a subacute appendicitis with periappendiceal phlegmon and early abscess formation. I discussed the options for treatment with the patient and his family. I have recommended against going straight ahead for surgery and have recommended a trial of treatment with antibiotics to see if we can treat the periappendicitis and then look at possibly later interval appendectomy. I explained that his course of treatment will be guided by his clinical response. We will probably get a follow-up CT scan over the next few days to see if this is responding her see if this is coalesced into a discrete abscess that could be drained. I am worried that acute surgical intervention in this morbidly obese patient could result in bowel injury or at best a large open wound in his lower abdominal wall pannus. They are in agreement with the plan which they understand can change based on whether or not he responds clinically 07/13: He feels a little better and has less pain but still has right lower quadrant pain and tenderness that is less than yesterday. There is less fullness overall but this is difficult to appreciate because of his severe morbid obesity. I'm going to check a follow-up CT scan. He is had low-grade temperature. We will see if he has a well-defined abscess to drain. This will be better if we could treat him with drainage and antibiotics rather than initial surgery as I suspect that we would require an open procedure and a very difficult case probably a large open wound in this morbidly obese patient. I fear that this could cause a great deal of morbidity. 07/14: He feels better and has much less abdominal pain since his percutaneous drainage. The mass effect and tenderness in his right side has diminished. He is hungry. He is had fever which is not surprising. We will continue IV antibiotics. We should get some cultures back on the drainage fluid. He is hungry and I think we can go ahead and try a diet. 07/15: Please note that this is a late entry progress note as I saw the patient early this morning. He feels much better. He has much less pain and is hungry. He is still having some fever and elevated white blood cell count. We need to continue his IV antibiotics for another couple of days at least. 07/16: He looks and feels much better. His white blood cell count is coming down. His abdomen is benign on exam. He had a very large abscess and it is growing Escherichia coli. I would continue the IV antibiotics through the weekend and we could probably order a follow-up CT scan on Tuesday. Hopefully he will have complete resolution of the abscess at that poin 07/19: He feels better and has no abdominal pain. He is afebrile and his abdomen is benign. His white blood cell count has returned to normal. We will get a follow-up CT scan today and hopefully remove his drain and discharge him home. Current Visit: Yes Subjective Patient reports: Present: feels better. Absent: still having pain, nausea, vomiting, fever Exam - Constitutional Vitals: Period Temp Pulse Resp BP Sys/Cardozo Pulse Ox Last 24 Hr 97.9 F-99.5 F 63-76 18-20 119-145/60-83 96-99 General appearance: no acute distress, morbidly obese - ENT Mouth exam: Present: normal voice - Neck Neck exam: Present: trachea midline - Respiratory Respiratory exam: Absent: accessory muscle use - GI/Abdominal GI/Abdominal exam: Present: soft. Absent: distended, tenderness, rebound Results - Labs CBC & BMP: 07/19/16 06:02 07/19/16 06:02 Lab Results: I have reviewed the past 24 hour labs
[2016-07-19] MEDS: POLYETHYLENE GLYCOL POWDER 17 GM PACK PO SCH (09:58)
--- NOTE | 2016-07-19 10:48 | CT Report ---
CT abdomen pelvis w con Indication: History of abscess. Comparison: CT of the abdomen and pelvis 07/13/2016. Technique: CT of the abdomen and pelvis was performed following administration of intravenous contrast. The CT examination was performed using one or more of the following dose reduction techniques: Automatic exposure control, adjustment of the mA and kV according to patient size, or iterative reconstruction techniques. Findings: Since the comparison study, there has been interval placement of percutaneous drain within the periappendiceal/pericecal abscess. Minimal if any residual fluid is present. A small amount of air is present along the tip of the catheter. A moderate amount of fat stranding is present within the paracolic gutter as well as exists anterior to the psoas muscle. Overall amount perhaps has minimally decreased since the comparison study. Increased reticular attenuation of subcutaneous fat and possibly some dermal thickening along the skin surface of the right anterolateral abdominal wall was noted. Otherwise little change has occurred in the appearance of the abdomen or pelvis since the comparison study. No new fluid collections are present. Impression: 1. General improvement in the previously demonstrated periappendiceal/pericecal abscess. Additionally, there is some evidence of decreased fat stranding within the retroperitoneum and posterior aspect of the right abdomen. 2. Interval placement of percutaneous drain. 3. Increased reticular attenuation of subcutaneous fat and dermal thickening along the right anterolateral abdominal wall could reflect sequelae of drain placement, edema, or infection. 07/19/2016 10:42 AM PROCEDURE INTERPRETED AT [facility] DEPARTMENT OF RADIOLOGY Final Report Signed by: Dr. Elia Shen
[2016-07-19 12:31] VITALS: BP 139/83
--- NOTE | 2016-07-19 13:45 | Discharge Summary ---
Hospital Course - Hospital Course Hospital Course: Patient is a 31-year-old male who is admitted with suspected subacute appendicitis with periappendiceal phlegmon for which a trial of nonoperative management was recommended including percutaneous drainage placement with IV antibiotics. This recommendation was due to the patient's body habitus and concern for the complexity of the procedure and subsequent complications. Patient had a [place] pigtail drain placed in the right lower quadrant successfully by interventional radiology. Drainage appropriately diminished over the next few days and the patient's symptoms also resolved. cultures grew E. coli and Streptococcus mutans. Leukocytosis and hyponatremia resolved. Patient exhibited poorly controlled diabetes mellitus with blood glucose levels running high 100s to low 200s. Patient's pain was adequately controlled. He was tolerating p.o. intake without difficulty voiding passing his bowels without difficulty. Repeat CT scan on day of discharge revealed resolution of the abscess with retained pigtail drain. This was removed without complication with a soft, impermeable dressing applied. - Time spent with patient Time with patient DS: Greater than 30 minutes Diagnosis - Discharge Diagnosis (1) Subacute appendicitis Status: Acute (2) Appendiceal abscess Status: Acute (3) Blood glucose elevated Status: Acute Discharge Plan - Discharge Data Disposition: Disch To Home/Self Care Condition at Discharge: Stable Discharge Diet: advance to your usual diet Activity: no lifting (>10lb) Hygiene: may shower, other (Do not submerge or aggressive rub wound. ) Driving: other (No driving while taking narcotics.) Contact your physician if you experience:: fever over 101, Difficulty voiding, Redness or swelling, Nausea/Vomiting, Shortness of breath, Bleeding (Drainage from wound.), pain uncontrolled by pain medications Wound / Dressing Care Instructions: Keep abdominal wound clean, dry and covered. - Discharge Medications New [place]NIDAZOLE TAB [Flagyl Cap/Tab] 500 mg PO TID #21 tablet HYDROcodone/ACETAMIN 5-325 [[place] 5-325] 1 tablet PO Q6H #20 tablet Levofloxacin Tab [Levaquin Tab] 500 mg PO DAILY #7 tablet - Follow Up or Referral Follow Up: Monico Castillo III., MD [Physician] - 1 Week - Forms/Instructions Additional Discharge Instructions: Your blood sugar levels were noted elevated while inptatient - recommend follow up with primary care physician in 5-7 days for formal evaluation to rule out diabetes. Exam - Constitutional Vitals: Period Temp Pulse Resp BP Sys/Cardozo Pulse Ox Last 24 Hr 97.4 F-99.5 F 63-76 18-20 119-145/60-83 96-99 General appearance: no acute distress - Eye Eye exam: Absent: scleral icterus - Respiratory Respiratory exam: Present: clear to auscultation bilaterally - Cardiovascular Cardiovascular exam: Present: regular rate and rhythm - GI/Abdominal GI/Abdominal exam: Present: normal bowel sounds, soft, other (Percutaneous TransCyte is clean and dry. Post removal there is no erythema about the drain with minimal serous drainage noted after removal. Patient does have some small areas of bullae from reaction to the adhesive. Care was taken in the reapplication of the dressing to protect this tissue.). Absent: tenderness - Neurological Exam Neurological exam: Present: alert, oriented X3 - Psychiatric Psychiatric exam: Present: normal affect, normal mood - Skin Skin exam: Present: normal color, warm Discharge Results Procedures and tests throughout hospitalization: percutaneous drain placement and interventional radiology Labs on day of discharge: Labs from last 24 hours 07/19/16 07/19/16 06:02 06:02 WBC 7.0 RBC 4.07 Hgb 11.8 L Hct 35.3 L MCV 86.7 L MCH 29 MCHC 33.4 RDW 12.6 Plt Count 203 D MPV 11.7 Neut % (Auto) 56.6 Lymph % (Auto) 28.3 [place] % (Auto) 10.5 Eos % (Auto) 3.6 Baso % (Auto) 0.3 Neut # (Auto) 4.0 Lymph # (Auto) 2.0 [place] # (Auto) 0.7 Eos # (Auto) 0.3 Baso # (Auto) 0.0 Total Counted 100 Immature Gran % 0.7 Nucleated RBC % 0.0 Immature Gran # 0.05 Segmented Neutrophils 68 Lymphocytes 27 Monocytes 2 Eosinophils 3 Nucleated RBCs # 0.00 Platelet Estimate Adequate Hypochromasia 1+ Sodium 141 Potassium 4.1 Chloride 104 Carbon Dioxide 29 Anion Gap 12.1 BUN 4 L Creatinine 0.90 GFR Calculation 172 BUN/Creatinine Ratio 4.00 L Glucose 163 H Calculated Osmolality 281.3 Calcium 7.5 L Magnesium 2.1 - Imaging and Cardiology Procedure: CT Abdomen and Pelvis: image reviewed by me, report reviewed by me DS: Provider Date of admission: 07/12/16 04:11 Primary care physician: Joseph Arvizu MD Attending physician on admission: Monico Castillo III., Consults: 07/12/16 05:45 Consult to Dietitian [CONS] Routine Reason for Dietitian: Diet Recommendations Discharging clinician: Bree Samuel PA-C
== END 2016-07-19 14:52 | disposition home or self-care (01) | DRG 372 ==
LOC: N.ED 02:07 → N.EDINP 04:11 → N.5E 04:46
PROVIDERS: ADMIT Surgery; ATTEND Surgery

== ENCOUNTER 2016-08-01 14:47 | Inpatient (IN) ==
[2016-08-01] MEDS ORDERED: SODIUM CHLORIDE 0.9% 1,000 ML IV STA (15:42)
--- NOTE | 2016-08-01 15:43 | Emergency Department Note ---
Jose Teresa Brooke, am scribing for, and in the presence of, Robert Duran Jr., MD 15:27. Roger Teresa Marvin Jr., MD, personally performed the services described in this documentation, ascribed by Anu Garcia in my presence, and it is both accurate and complete [id number] . Arrival - Arrival Chief Complaint: Wound/Laceration Stated Complaint: wound infection ED Nursing Triage Note: Pt arrived via ems with complaint of wound infection. Pt transferred from [facility]. Had ruptured appendix 2wks ago. Drain removed 1 wk ago. Right lower quad abd wound with purulent drainage noted. Mode of Arrival: Stretcher Limitations: No Limitations Source: Patient, Old Records Reviewed (Records from the other hospital show white count of 17.7, sugar of 439 which she does not have a history of diabetes. Therefore this be a new onset diabetes. Also CT was done and the results are listed in the results section here. He was given Zosyn and vancomycin and transferred here.), RN Notes Reviewed Time Seen by Provider: 08/01/16 15:19 - History of Present Illness HPI Narrative: Patient is a 31 year old male brought into the ED by EMS, from [facility], with c/o possible infection where a drain was placed. Patient says his appendix ruptured, two weeks ago, and Dr. Castillo put a drain in. He says the drain is now removed. He finished taking his antibiotics on Tuesday. He then started having abdominal pain on and noticed some purulent drainage coming from where the drain was at. Patient says he has also had chills, nausea , and vomiting. He says he vomited once on Tuesday but thinks it may be because he ate too much. Patient says he was taking Motrin every four hours for the pain. There are no other complaints. Patient has no known medical problems. Allergies/Adverse Reactions: Allergies Allergy/AdvReac Type Severity Reaction Status Date / Time Penicillins Allergy Intermediate RASH Verified 07/12/16 02:22 Home Medications: Home Medications Medication Instructions Recorded Confirmed Type No Known Home Medications [No 08/01/16 08/01/16 History Known Home Medications] Review of System - Review of System 12 point system: reviewed and no additional remarkable complaints except as stated - Review of System Constitutional: Present: chills. Absent: fever Respiratory: Absent: respiratory distress Gastrointestinal: Present: abdominal pain, nausea, vomiting (1x Tuesday), other ( ruptured appendix. Had drain that was removed. Stopped taking abx and noticed pururlent drainage) Skin: Absent: rash Medical,Surgical,& Family Hx - Social History Smoking Status: Current every day smoker Frequency of Alcohol Use: None Type of Drug Use: None Exam Physical Examination: General: Well-developed well-nourished, no apparent distress. Head: Normocephalic, atraumatic. Eyes: PERRLA, EOMI. Nose: No obvious acute deformities or discharge. Mouth: No obvious acute injury. Neck: Full range of motion without obvious pain. No midline tender to palpation. Lymphatic: no significant lymphadenopathy noted. Lungs: Clear to auscultation bilaterally, normal and equal air movement bilaterally, no obvious rales or wheezing. Heart: Slightly tachycardic Abdomen: Mild tender to palpation right lower quadrant Skin: Dry incision on his right lateral lower abdomen with slight purulent discharge coming out. Musculoskeletal: No gross deformities. Neurological: No focal findings, cranial nerves II through XII grossly normal. Psychiatric: Appropriate mood.. : Deferred Vital Signs: Vital Signs Temperature 100.1 F H 08/01/16 14:55 Pulse Rate 106 H 08/01/16 14:55 Respiratory Rate 20 08/01/16 14:55 Blood Pressure 113/70 08/01/16 14:55 O2 Sat by Pulse Oximetry 97 08/01/16 14:55 Course Course Narrative: Differential diagnoses is new abscess forming in his abdominal cavity. I called Dr. Jamil and he will come to the ER and examined this patient with anticipation of admission. I will sign this chart and will annotated if for some reason he discharges him. Results - Labs Lab Results: I have reviewed the patients labs (Labs sent from the other hospital.) - Diagnostic Findings Procedure: CT Abdomen and Pelvis: report reviewed by me (Performed at [facility] 08/01/2016- Impression: 1. Persistent, but decreased, inflammatory focus at the previous appendiceal rupture site. 2. New infectious phlegmon with scattered internal gas bubbles in the lateral and posterior aspect of the right lower quadrant, as well as, involving the lateral abdominal musculature. 3. No discrete fluid collection to indicate drainable abscess.) Disposition Clinical Impression: Status post ruptured appendix, New intra-abdominal abscess Case discussed with: patient Disposition: Still a Patient Condition: Stable Time of Disposition: 15:42
--- NOTE | 2016-08-01 16:02 | General Surg History&Physical ---
Assessment and Plan - Time spent with patient Time spent with patient: Greater than 30 minutes (1) Abscess, abdomen Status: Acute Assessment and plan: Impression: Abscess involving abdominal wall and periappendiceal area 2. Status post laparoscopic appendectomy for appendicitis 3. Diabetes mellitus insulin-dependent Plan: IV antibiotics May need surgery for abdominal wall drainage Current Visit: Yes History of Present Illness Chief complaint: Recurrent pain and drainage from the right lower quadrant History of present illness: Mr. Kelsey is a 31 year old male who presents to the emergency room because of increased pain and drainage from the right lower quadrant area. He apparently had a ruptured appendix removed laparoscopically and would later developed a abscess in the right lower quadrant area. Percutaneous drain was placed and pulled before he left the hospital. He apparently ran out of antibiotics on Tuesday and by he was having some increased pain and increased drainage from the old drain site in the right lower quadrant. Transferred down here from [place] with CT scan that showed a resolving abscess but he has some changes in the abdominal wall area. He had drainage from the drain site that was cultured here in the emergency room and was admitted for some IV antibiotics and possible further surgery. Home Medications Medication Instructions Recorded Confirmed Type No Known Home Medications [No 08/01/16 08/01/16 History Known Home Medications] Allergies Allergy/AdvReac Type Severity Reaction Status Date / Time Penicillins Allergy Intermediate RASH Verified 07/12/16 02:22 Medical,Surgical,& Family Hx - Social History Smoking Status: Current every day smoker Frequency of Alcohol Use: None Type of Drug Use: None Exam - Constitutional Vitals: Period Temp Pulse Resp BP Sys/Cardozo Pulse Ox Last 24 Hr 100.1 F-100.1 F 106-106 20-20 113-113/70-70 97-97 General appearance: mild distress - Head Head exam: Present: normal inspection - ENT ENT exam: Present: normal exam - Neck Neck exam: Present: normal inspection - Respiratory Respiratory exam: Present: clear to auscultation bilaterally - GI/Abdominal GI/Abdominal exam: Present: hypoactive bowel sounds, soft, other (There is a small opening in the right lower quadrant that on palpation produces purulent looking drainage from this area. It is tender around this region but the rest the abdomen seems to be soft and nontender.) - Extremities Exam Extremities exam: Present: normal inspection - Back Exam Back exam: Present: normal inspection - Neurological Exam Neurological exam: Present: alert, oriented X3, CN II-XII intact - Skin Skin exam: Present: normal color, warm, dry 12 point system: reviewed and no additional remarkable complaints except as stated Results - Labs Lab Results: I have reviewed the past 24 hour labs - Diagnostic Findings Procedure: CT Abdomen and Pelvis: report reviewed by me
[2016-08-01] MEDS ORDERED: BISACODYL 5 MG TABLET PO PRN (16:11)
[2016-08-01] MEDS ORDERED: ALUMINUM/MAGNES/SIMETH MAX STR 30 ML UDCUP PO PRN (16:11)
[2016-08-01] MEDS ORDERED: ACETAMINOPHEN 325 MG TABLET PO PRN (16:11)
[2016-08-01] MEDS ORDERED: HYDROmorphone 2 MG/1 ML VIAL IV PRN (16:11)
[2016-08-01] MEDS ORDERED: GLUCAGON 1 MG VIAL IM PRN (16:18)
[2016-08-01] MEDS ORDERED: DEXTROSE 50% 25 GM/50 ML VIAL IV PRN (16:18)
--- NOTE | 2016-08-01 17:33 | XRay Report ---
Exam: Chest 2 views Date: August 01, 2016 at 3:32 PM Comparison: Chest x-ray portable July 27, 2007 Reason: Abdominal abscess Findings: The cardiac silhouette is upper normal in size. No focal consolidation, pneumothorax or pleural effusion is identified. No acute osseous process is seen. Impression: No acute cardiopulmonary process is identified. PROCEDURE INTERPRETED AT [facility] DEPARTMENT OF RADIOLOGY Final Report Signed by: Dr. Garrett Smith
[2016-08-01] MEDS: AZTREONAM 1,000 MG in SODIUM CHLORIDE 0.9% 100 ML IV SCH (18:58)
[2016-08-01] MEDS: KETOROLAC 15 MG/1 ML VIAL IV SCH ×2 (19:01→22:10)
[2016-08-01] MEDS: INSULIN REGULAR 100 UNIT/ML SUBCUT SCH ×2 (19:06→22:11)
[2016-08-01] MEDS: metroNIDAZOLE INJ 500 MG in PREMIX 1 EACH IV SCH ×2 (19:08→22:10)
[2016-08-01] MEDS: DOCUSATE SODIUM 100 MG CAPSULE PO SCH (22:10)
[2016-08-01] MEDS: CIPROFLOXACIN INJ 400 MG in PREMIX 1 EACH IV SCH (22:11)
[2016-08-02] MEDS: AZTREONAM 1,000 MG in SODIUM CHLORIDE 0.9% 100 ML IV SCH ×3 (01:18→16:54)
[2016-08-02] MEDS: metroNIDAZOLE INJ 500 MG in PREMIX 1 EACH IV SCH ×4 (03:35→21:35)
[2016-08-02] MEDS: KETOROLAC 15 MG/1 ML VIAL IV SCH ×2 (03:35→10:35)
[2016-08-02] MEDS: CIPROFLOXACIN INJ 400 MG in PREMIX 1 EACH IV SCH ×2 (06:27→18:48)
[2016-08-02] MEDS: ONDANSETRON 4 MG/2 ML VIAL IV PRN (06:32)
[2016-08-02] MEDS ORDERED: GLUCAGON 1 MG VIAL IM PRN (07:21)
[2016-08-02] MEDS ORDERED: DEXTROSE 50% 25 GM/50 ML VIAL IV PRN (07:21)
[2016-08-02] MEDS: SODIUM CHLORIDE 0.9% 1,000 ML IV SCH ×3 (08:21→18:48)
[2016-08-02 08:29] LABS: Basophils % 0.4 % (0.0-0.8); Eosinophils # 0.1 10*3/uL (0.0-0.87); Eosinophils % 1.2 % (0.00-10.9); Hematocrit 34.6 VOL% (42.0-52.0); Hemoglobin 11.6 GM/DL (14.0-18.0); Immature Granulocytes % 0.4 %; Immature Granulocytes Absolute 0.03 #; Lymphocytes # 1.5 10*3/uL (1.4-4.0); Lymphocytes % 18.5 % (21.2-54.2); Mean Corpuscular HGB Conc 33.5 GM/DL (32-36); Mean Corpuscular Hemoglobin 28 PG (27-34); Mean Corpuscular Volume 84.8 FL (87-102); Mean Platelet Volume 11.7 FL (9.6-12.0); Monocytes # 0.8 10*3/uL (0.11-0.8); Monocytes % 9.4 % (1.7-12.7); Neutrophils # 5.8 10*3/uL (1.4-7.4); Neutrophils % 70.1 % (38.7-73.9); Platelet Count 183 T/CUMM (130-400); Red Blood Count 4.08 MC/CUMM (3.8-5.5); Red Cell Distribution Width 12.7 % (9.3-17.3); White Blood Count 8.3 T/CUMM (4-12)
--- NOTE | 2016-08-02 08:31 | General Surgery Progress Note ---
Assessment and Plan - Time spent with patient Time spent with patient: Less than 30 minutes (1) Appendiceal abscess Status: Acute Assessment and plan: He has had subacute appendicitis with abscess which was drained percutaneously. He was admitted because of some drainage from his drain site. I do not see cellulitis of his abdominal wall does do this is difficult to assess because of his morbid obesity. I would continue with antibiotics for now. I was able to review the CT scan report from [facility] but I do not have the films. I think it would be beneficial to wait a few days before repeating the CT scan to see if we are making progress and see if there is anything to drain. By their report there was nothing to drain at this time. I think that the patient is stable and operative intervention at this point would be very morbid for this patient. We will continue with IV antibiotics. We can do cultures from the drain site itself. We can also tailor our therapy based on cultures from his previous admission. Current Visit: No Subjective Patient reports: Present: feels better, pain is less. Absent: nausea, vomiting , shortness of breath, fever Exam - Constitutional Vitals: Period Temp Pulse Resp BP Sys/Cardozo Pulse Ox Last 24 Hr 96.7 F-98.5 F 69-100 18-21 93-166/48-81 91-100 General appearance: no acute distress - Head Head exam: Present: normocephalic - Eye Eye exam: Absent: scleral icterus - Respiratory Respiratory exam: Absent: accessory muscle use - GI/Abdominal GI/Abdominal exam: Present: soft. Absent: distended, tenderness, rebound Results - Diagnostic Findings Procedure: CT Abdomen and Pelvis: report reviewed by me Quality Measures - VTE Contraindication to Pharmacological VTE Prophylaxis: High Risk of Bleeding
[2016-08-02] MEDS: DOCUSATE SODIUM 100 MG CAPSULE PO SCH ×2 (08:42→21:35)
[2016-08-02] MEDS: PANTOPRAZOLE 40 MG TABLET PO SCH (08:42)
[2016-08-02] MEDS: INSULIN REGULAR 100 UNIT/ML SUBCUT SCH ×4 (08:42→21:39)
[2016-08-02 08:58] LABS: Albumin 2.2 G/DL (3.4-5.0); Bilirubin,Total 0.8 MG/DL (0.2-1.0); Calcium 7.9 MG/DL (8.5-10.1); Potassium 3.7 MMOL/L (3.5-5.1); Total Protein 6.3 G/DL (6.4-8.3)
[2016-08-02] MEDS: ENOXAPARIN 40 MG/0.4 ML SYRINGE SUBCUT SCH (12:40)
[2016-08-03] MEDS: AZTREONAM 1,000 MG in SODIUM CHLORIDE 0.9% 100 ML IV SCH ×3 (01:37→17:49)
[2016-08-03] MEDS: metroNIDAZOLE INJ 500 MG in PREMIX 1 EACH IV SCH ×4 (03:36→21:38)
[2016-08-03] MEDS: SODIUM CHLORIDE 0.9% 1,000 ML IV SCH ×2 (05:00)
[2016-08-03] MEDS: CIPROFLOXACIN INJ 400 MG in PREMIX 1 EACH IV SCH ×2 (05:01→19:13)
[2016-08-03 05:57] LABS: Basophils % 0.5 % (0.0-0.8); Eosinophils # 0.1 10*3/uL (0.0-0.87); Eosinophils % 1.1 % (0.00-10.9); Hematocrit 35.2 VOL% (42.0-52.0); Hemoglobin 11.7 GM/DL (14.0-18.0); Immature Granulocytes % 0.3 %; Immature Granulocytes Absolute 0.02 #; Lymphocytes # 1.6 10*3/uL (1.4-4.0); Lymphocytes % 25.2 % (21.2-54.2); Mean Corpuscular HGB Conc 33.2 GM/DL (32-36); Mean Corpuscular Hemoglobin 28 PG (27-34); Mean Corpuscular Volume 85.2 FL (87-102); Mean Platelet Volume 11.4 FL (9.6-12.0); Monocytes # 0.7 10*3/uL (0.11-0.8); Monocytes % 11.7 % (1.7-12.7); Neutrophils # 3.8 10*3/uL (1.4-7.4); Neutrophils % 61.2 % (38.7-73.9); Platelet Count 201 T/CUMM (130-400); Red Blood Count 4.13 MC/CUMM (3.8-5.5); Red Cell Distribution Width 12.8 % (9.3-17.3); White Blood Count 6.2 T/CUMM (4-12)
[2016-08-03 06:35] LABS: Calcium 7.8 MG/DL (8.5-10.1); Osmolality,Calculated 278.4 MOS/KG (273-304)
--- NOTE | 2016-08-03 07:06 | General Surgery Progress Note ---
Assessment and Plan (1) Appendiceal abscess Status: Acute Assessment and plan: He has had subacute appendicitis with abscess which was drained percutaneously. He was admitted because of some drainage from his drain site. I do not see cellulitis of his abdominal wall does do this is difficult to assess because of his morbid obesity. I would continue with antibiotics for now. I was able to review the CT scan report from [facility] but I do not have the films. I think it would be beneficial to wait a few days before repeating the CT scan to see if we are making progress and see if there is anything to drain. By their report there was nothing to drain at this time. I think that the patient is stable and operative intervention at this point would be very morbid for this patient. We will continue with IV antibiotics. We can do cultures from the drain site itself. We can also tailor our therapy based on cultures from his previous admission. 08/03: He feels better. He is not having fever. He has less abdominal pain and drainage from his drain site. We will check a follow-up CT scan of his abdomen. We will stop his IV fluid. Current Visit: No Subjective Patient reports: Present: feels better, pain is less. Absent: nausea, vomiting , shortness of breath, fever Exam - Constitutional Vitals: Period Temp Pulse Resp BP Sys/Cardozo Pulse Ox Last 24 Hr 97.2 F-99.2 F 73-82 17-20 123-145/72-88 93-97 General appearance: no acute distress - Head Head exam: Present: normocephalic - Eye Eye exam: Absent: scleral icterus - Respiratory Respiratory exam: Absent: accessory muscle use - GI/Abdominal GI/Abdominal exam: Present: soft. Absent: distended, tenderness, rebound Results - Labs CBC & BMP: 08/03/16 05:34 08/03/16 05:34 Lab Results: I have reviewed the past 24 hour labs - Diagnostic Findings Procedure: CT Abdomen and Pelvis: pending Quality Measures - VTE Contraindication to Pharmacological VTE Prophylaxis: High Risk of Bleeding
[2016-08-03] MEDS: INSULIN REGULAR 100 UNIT/ML SUBCUT SCH ×4 (08:26→21:38)
[2016-08-03] MEDS: ONDANSETRON 4 MG/2 ML VIAL IV PRN (08:27)
--- NOTE | 2016-08-03 10:41 | CT Report ---
CT abdomen pelvis w con Indication: Follow-up abdominal abscess Comparison: CT abdomen pelvis dated August 01, 2016. Technique: Multiple axial tomographic images of the abdomen and pelvis were obtained after the administration of 100 cc Omnipaque 350 intravenous contrast. Findings: Mild dependent change of the lung bases present. No worrisome focal hepatic abnormality. Gallbladder nondistended. Pancreas and spleen grossly unremarkable. Bilateral adrenal glands and kidneys grossly unremarkable. Urinary bladder incompletely distended. Prostate and seminal vesicles grossly unremarkable. No evidence of gastrointestinal obstruction. There is some wall thickening demonstrated within the posterior aspect of the cecum. Stranding noted about the appendix. Previously described air/fluid collection along the right paracolic gutter appears similar to prior examination. This measures approximately 4.8 x 3.0 cm in axial dimensions and extends from the inferior renal level to the superior sacral level. Soft tissue stranding in small air foci noted within the right lateral anterior abdominal wall consistent with prior procedure. Vasculature grossly unremarkable. Osseous structures appear grossly unchanged. IMPRESSION: No significant change in size of abscess along the right paracolic gutter. There is wall thickening of the posterior cecum as well as inflammatory stranding about the appendix. Detailed findings as above. PROCEDURE INTERPRETED AT [facility] DEPARTMENT OF RADIOLOGY Final Report Signed by: Dr Tushar Matthews
[2016-08-03] MEDS: DOCUSATE SODIUM 100 MG CAPSULE PO SCH ×2 (11:18→21:37)
[2016-08-03] MEDS: PANTOPRAZOLE 40 MG TABLET PO SCH (11:18)
[2016-08-03] MEDS: ENOXAPARIN 40 MG/0.4 ML SYRINGE SUBCUT SCH (11:29)
--- NOTE | 2016-08-03 11:43 | Hospitalist Consult Note ---
<Laverne Wilhelm - Last Filed: 08/03/16 12:32> Assessment and Plan (1) Diabetes Status: Acute Assessment and plan: Continue achs. Accuchecks. A1c is 10. Pt needs diabetes education. Monitor blood sugars. Help patient find PCP near home for outpatient follow up Current Visit: Yes (2) Appendiceal abscess Status: Acute Assessment and plan: Defer to surgery for treatment. Current Visit: No History of Present Illness - Consult Narrative Reason for consult: new diagnosis of diabetes History of present illness: Mr. Kelsey is a 31 year old male with a history of ruptured appendix that presented to the ED on because of pain and drainage from right lower quadrant area. Pt was s/p appendix removal and had previously had a percutaneous drain to the RLQ because of an abscess that formed in the RLQ area. The patient later had the drain removed. He was discharged and had been at home for about a week before experiencing fever, chills, and drainage. He was a transfer from [place] for evaluation. During his stay, the patient had elevated blood sugars and a hemoglobin A1C of 10. The hospitalist service has been consulted to manage this new onset of diabetes. 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 Pt denies any increased thirst , headaches, vision changes, unhealing wounds or other symptoms. Pt does not have other medical history that he's aware of. Denies unhealthy diet reports fruits and vegetables as primary source of nutrients. Pt is a smoker but denies drinking or illegal drug use. Strong family hx of diabetes - patient's mom, dad , and sister have dm. The patient was already placed on accuchecks. We will adjust accordingly. We will consult DM educator for the patient and health care social worker so that patient can be placed with a PCP in his area. Thanks for your consult. CC: Monico Castillo III., - Home Medications and Allergies Home Medications: Home Medications Medication Instructions Recorded Confirmed Type No Known Home Medications [No 08/01/16 08/01/16 History Known Home Medications] Allergies/Adverse Reactions: Allergies Allergy/AdvReac Type Severity Reaction Status Date / Time Penicillins Allergy Intermediate RASH Verified 07/12/16 02:22 Medical,Surgical,& Family Hx - Medical History Gastrointestinal: History of: GI Problems (RUPTURED APPENDIX) - Family History Family History: Reports;: Family Diabetes (MOTHER) - Social History Smoking Status: Current every day smoker Frequency of Alcohol Use: None Type of Drug Use: None Functional capacity: independent ambulation - Constitutional Constitutional: Present: chills, excessive sweating, fatigue, fever(s). Absent : headache(s) - EENT Eyes: Absent: loss of vision, requires corrective lense Ears: Absent: decreased hearing Nose, mouth and throat: Absent: sore throat - Cardiovascular Cardiovascular: Absent: chest pain at rest, dyspnea - Respiratory Respiratory: Absent: dyspnea, wheezing - Gastrointestinal Gastrointestinal: Present: abdominal pain. Absent: nausea, vomiting - Genitourinary Genitourinary: Present: urinary frequency. Absent: hematuria - Musculoskeletal Musculoskeletal: Absent: limited range of motion, muscle cramps - Neurological Neurological: Absent: dizziness, headache(s) - Psychiatric Psychiatric: Absent: anxiety, confusion - Endocrine Endocrine: Present: heat intolerance, polyuria Exam - Constitutional Vitals: Period Temp Pulse Resp BP Sys/Cardozo Pulse Ox Last 24 Hr 97.5 F-99.2 F 73-82 17-20 123-146/80-93 95-98 General appearance: no acute distress, over weight - Head Head exam: Present: normal inspection, normocephalic - Eye Eye exam: Present: EOMI. Absent: scleral icterus Pupils: Present: MARIANNA. Absent: fixed - Respiratory Respiratory exam: Present: clear to auscultation bilaterally. Absent: wheezes - Cardiovascular Cardiovascular exam: Present: regular rate and rhythm. Absent: tachycardia - GI/Abdominal GI/Abdominal exam: Present: soft, other (dressing to right lower abdomen) - Extremities Exam Extremities exam: Present: normal capillary refill, full ROM, edema - Neurological Exam Neurological exam: Present: alert, oriented X3, normal gait - Psychiatric Psychiatric exam: Present: normal affect, normal mood - Skin Skin exam: Present: normal color, warm, dry Results - Labs CBC & BMP: 08/03/16 05:34 08/03/16 05:34 Lab Results: I have reviewed the past 24 hour labs Quality Measures - VTE Contraindication to Pharmacological VTE Prophylaxis: High Risk of Bleeding Specialty Discharge - Follow Up or Referrals Follow up with: Monico Castillo III., MD [Physician] - <Ritu Camacho - Last Filed: 08/03/16 17:36> History of Present Illness - Consult Narrative History of present illness: Mr. Kelsey is a 31 year old male who presented s/p ruptured appendix s/p surgery 1 week ago who reports 2 days of drainage from wound site of whitish/ slightly yellow discharge. He reports chills. CT scan of abd/ pelvis done revealing abscess and surgery has plans for I and D/ exp lap in am. We were consulted for management of DM. He denies polyuria, polydipsia or polyphagia. He reports unintentional weight loss of 345 to 312 over the last few weeks. He admits to decreased appetite and nausea but no vomiting. He also reports lightheadedness and dizziness. We were asked to assist with medical management. A and O x 3, obese RRR no M CTAB nonlabored Soft with whitish discharge drainage from prior PCT site, TTP on right without rebound or guarding hypoactive bowel sounds Warm no c/c/e Labs/Investigative studies reviewed. A/P: * Newly diagnosed DM (suspect type 2) - Cont I.S.S. and will schedule insulin based on values. DM education. Check TSH and FLP. start statin as clinically indicated * Morbid obesity BMI 43 - recommend dietary and physical activity modifications * Elevated BP - I suspect this is likely due to pain. Pain control. Start antihypertensives as clinically indicated * Abd abscess s/p recent ruptured appendix - mgt per primary service. Cont IV antibiotics and F/U Wound and blood cultures. DVT prophylaxis Thank you for consulting us to participate in the care of this patient. CC: Monico Castillo III., Exam - Constitutional Vitals: Period Temp Pulse Resp BP Sys/Cardozo Pulse Ox Last 24 Hr 96.7 F-99.2 F 73-91 16-20 123-146/79-93 95-98 Results - Labs CBC & BMP: 08/03/16 05:34 08/03/16 05:34
[2016-08-03] MEDS: CIPROFLOXACIN/DEXAMETHASONE OTIC SUSP 7.5 ML BOTTLE LEFT EAR SCH ×2 (17:49→20:12)
[2016-08-04] MEDS: AZTREONAM 1,000 MG in SODIUM CHLORIDE 0.9% 100 ML IV SCH ×3 (01:19→17:33)
[2016-08-04] MEDS: metroNIDAZOLE INJ 500 MG in PREMIX 1 EACH IV SCH ×4 (03:35→23:29)
[2016-08-04] MEDS: CIPROFLOXACIN INJ 400 MG in PREMIX 1 EACH IV SCH ×2 (05:00→19:48)
[2016-08-04 05:50] LABS: Basophils % 0.5 % (0.0-0.8); Eosinophils # 0.1 10*3/uL (0.0-0.87); Eosinophils % 1.3 % (0.00-10.9); Hematocrit 37.2 VOL% (42.0-52.0); Hemoglobin 12.4 GM/DL (14.0-18.0); Immature Granulocytes % 0.3 %; Immature Granulocytes Absolute 0.02 #; Lymphocytes # 1.3 10*3/uL (1.4-4.0); Lymphocytes % 20.9 % (21.2-54.2); Mean Corpuscular HGB Conc 33.3 GM/DL (32-36); Mean Corpuscular Hemoglobin 29 PG (27-34); Mean Corpuscular Volume 86.1 FL (87-102); Monocytes # 0.6 10*3/uL (0.11-0.8); Monocytes % 9.7 % (1.7-12.7); Neutrophils # 4.1 10*3/uL (1.4-7.4); Neutrophils % 67.3 % (38.7-73.9); Platelet Count 201 T/CUMM (130-400); Red Blood Count 4.32 MC/CUMM (3.8-5.5); Red Cell Distribution Width 12.6 % (9.3-17.3); White Blood Count 6.2 T/CUMM (4-12)
[2016-08-04 06:39] LABS: Albumin 2.4 G/DL (3.4-5.0); Osmolality,Calculated 279.3 MOS/KG (273-304); Phosphorous 3.6 MG/DL (2.5-4.9); Potassium 3.8 MMOL/L (3.5-5.1); Risk Ratio 4.61; VLDL CHOLESTEROL 19.4 MG/DL
[2016-08-04 06:45] LABS: Free T4 (Free Thyroxine) 1.61 NG/DL (0.76-1.46); Thyroid Stimulating Hormone 1.32 uIU/ml (0.358-3.74)
--- NOTE | 2016-08-04 07:55 | General Surgery Progress Note ---
Assessment and Plan (1) Appendiceal abscess Status: Acute Assessment and plan: He has had subacute appendicitis with abscess which was drained percutaneously. He was admitted because of some drainage from his drain site. I do not see cellulitis of his abdominal wall does do this is difficult to assess because of his morbid obesity. I would continue with antibiotics for now. I was able to review the CT scan report from [facility] but I do not have the films. I think it would be beneficial to wait a few days before repeating the CT scan to see if we are making progress and see if there is anything to drain. By their report there was nothing to drain at this time. I think that the patient is stable and operative intervention at this point would be very morbid for this patient. We will continue with IV antibiotics. We can do cultures from the drain site itself. We can also tailor our therapy based on cultures from his previous admission. 08/03: He feels better. He is not having fever. He has less abdominal pain and drainage from his drain site. We will check a follow-up CT scan of his abdomen. We will stop his IV fluid. 08/04: He looks well clinically and is better clinically after getting IV antibiotics but his CT scan shows an area of phlegmon around his appendix and a discrete abscess near the abdominal wall. I have reviewed this with Dr. Turk from interventional radiology and he feels that he can drain this. We discussed the issues of repeated drainage and antibiotics versus going ahead and doing surgery. I did explain that surgery could be very morbid for him since he has extensive infection in this location and is morbidly obese. He may end up with an open wound that requires packing and prolonged healing and recovery related to this. I think that he would probably be better off with another chance at nonoperative treatment with percutaneous drainage and antibiotics. Current Visit: No Subjective Patient reports: Present: feels better, pain is less. Absent: nausea, vomiting , fever Exam - Constitutional Vitals: Period Temp Pulse Resp BP Sys/Cardozo Pulse Ox Last 24 Hr 96.7 F-99.1 F 68-91 16-20 121-146/71-93 95-98 General appearance: no acute distress, morbidly obese - Head Head exam: Present: normocephalic - GI/Abdominal GI/Abdominal exam: Present: soft. Absent: distended, tenderness, rebound Results - Labs CBC & BMP: 08/04/16 05:39 08/04/16 05:39 Lab Results: I have reviewed the past 24 hour labs - Diagnostic Findings Procedure: CT Abdomen and Pelvis: image reviewed by me, report reviewed by me Quality Measures - VTE Contraindication to Pharmacological VTE Prophylaxis: High Risk of Bleeding Specialty Discharge - Follow Up or Referrals Follow up with: Monico Castillo III., MD [Physician] -
[2016-08-04] MEDS: INSULIN REGULAR 100 UNIT/ML SUBCUT SCH ×4 (09:00→21:31)
[2016-08-04] MEDS: CIPROFLOXACIN/DEXAMETHASONE OTIC SUSP 7.5 ML BOTTLE LEFT EAR SCH ×2 (09:01→21:29)
[2016-08-04] MEDS ORDERED: MIDAZOLAM 2 MG/2 ML VIAL IV ONE (11:35)
[2016-08-04] MEDS ORDERED: DIAZEPAM 5 MG TABLET PO ONE ×2 (11:35)
[2016-08-04] MEDS ORDERED: fentaNYL 100 MCG/2 ML VIAL IV ONE (11:35)
--- NOTE | 2016-08-04 11:35 | IR History and Physical Update ---
IR Pre-Procedure - History and Physical H&P was reviewed, the patient examined and there: are no changes in the patients condition since last H&P was completed. Reason for procedure:: 31-year-old male with appendiceal abscess initially drained a couple of weeks ago, now with recurrent abscess pocket in the right lower quadrant. Asked to place percutaneous drain. - Dictation Physical: refer to H&P completed by admitting physician - Physical Exam Vital Signs: Last Vital Signs Temp 97.4 F L 08/04/16 11:18 Pulse 72 08/04/16 11:18 Resp 18 08/04/16 11:18 BP 140/75 08/04/16 11:18 Pulse Ox 96 08/04/16 11:18 Mental Status: alert and oriented - Sedation ASA Class: I - Risks Risks: Procedures explained. Risks discussed include, but not limited to, the following:[Bleeding, sepsis] All questions answered. The following alternatives were discussed:[Surgery] Risks and benefits discussed with: patient Consent obtained from: patient Assessment and Plan - Time spent with patient Time spent with patient: Less than 30 minutes (1) Appendiceal abscess Status: Acute Assessment and plan: Assessment: Recurrent abscess right lower quadrant, along the right flank Plan: Percutaneous drain placement today. Current Visit: No
--- NOTE | 2016-08-04 12:14 | Hospitalist Progress Note ---
Hospitalist: Subjective Interval history: Pt reports abdominal pain is controlled. No fever. Mild nausea but no emesis. No cp or SOB. Exam - Constitutional Vitals: Period Temp Pulse Resp BP Sys/Cardozo Pulse Ox Last 24 Hr 96.7 F-99.1 F 68-91 16-20 121-140/71-87 95-96 Exam: A and O x 3, obese, sitting in a chair RRR no M CTAB nonlabored Soft with whitish discharge drainage from prior PCT site, TTP on right without rebound or guarding hypoactive bowel sounds Warm no c/c/e Results - Labs CBC & BMP: 08/04/16 05:39 08/04/16 05:39 - Impressions * Newly diagnosed DM (suspect type 2) - Cont I.S.S. and will schedule levemir 20U SQ hs. Adjust as needed. DM education. TSH wnl but Free T4 elevated. I have had several patient's in house with similar results. Plans to repeat outpatient to see if this is lab error or of any clinical significance and FLP ok LDL <100. * Morbid obesity BMI 43 - recommend dietary and physical activity modifications * Elevated BP - I suspect this is likely due to pain. Pain control. Cont current mgt for now. * Abdominal abscess s/p recent ruptured appendix due to GPC - mgt per primary service. Plans for PCT drain. Cont IV antibiotics and F/U Wound and blood cultures. DVT prophylaxis- Lovenox Following along with toy. Quality Measures - VTE Contraindication to Pharmacological VTE Prophylaxis: High Risk of Bleeding Specialty Discharge - Follow Up or Referrals Follow up with: Monico Castillo III., MD [Physician] -
[2016-08-04] MEDS: SODIUM CHLORIDE 0.45% 1,000 ML IV SCH (12:54)
[2016-08-04] MEDS ORDERED: MIDAZOLAM 2 MG/2 ML VIAL ONE (14:01)
[2016-08-04] MEDS ORDERED: fentaNYL 100 MCG/2 ML VIAL ONE (14:01)
--- NOTE | 2016-08-04 14:54 | Post Interventional Procedure ---
Pre-op diagnosis: RLQ appendiceal abscess Post-op diagnosis: same Procedure: Attempted direct puncture in CT, unsuccessful. Moved to IR and performed sinogram. Able to thread a 10-Fr drain back into abscess cavity to control the abscess-cutaneous fistula. Could not see a colonic leak with the sinogram, in part due to residual oral contrast in the cecum from prior CTs. May need repeat sinogram if output from drain does not taper within the next week. Contrast: Omni 350, 15 cc Flouroscopy: 3.1 min Radiologist: Adi Turk Anesthesia: local Specimens: other (5 cc pus for cx and GS) Estimated blood loss: none Complications: none Condition: stable Description/Findings: Placement of 10-Fr pigtail via existing tract. Assessment and Plan - Time spent with patient Time spent with patient: Greater than 30 minutes (1) Appendiceal abscess Status: Acute Assessment and plan: Assessment: Recurrent abscess right lower quadrant, along the right flank Plan: Percutaneous drain placement today. Current Visit: No
[2016-08-04] MEDS ORDERED: GLUCAGON 1 MG VIAL IM PRN (15:45)
[2016-08-04] MEDS ORDERED: DEXTROSE 50% 25 GM/50 ML VIAL IV PRN (15:45)
--- NOTE | 2016-08-04 16:29 | CT Report ---
CT abscess drainage, IR fistula/abscess/sinus tract Indication: Recurrent right lower quadrant abscess. ATTEMPTED CT-GUIDED DRAIN PLACEMENT RIGHT LOWER QUADRANT ABSCESS, SINOGRAM, FLUOROSCOPIC PLACEMENT OF DRAINAGE CATHETER VIA EXISTING TRACT Description: A formal timeout was performed. Patient was initially placed prone on the CT table and paper cup handle machine operator imaging through the pelvis obtained. The dominant abscess collection in the right lower quadrant muscular layers has decreased in size since the diagnostic CT obtained last night. Additionally, retained oral contrast in the cecum was present adjacent to the abscess collection which results in moderate beam hardening artifact locally. After sterile prep and drape of the right lower quadrant skin, a needle was placed for planning purposes in the subcutaneous tissues directed towards the anticipated location of the abscess. However, when CT fluoroscopic images were obtained with excess artifact, the actual abscess pocket was not clearly identified as a target. Of note, the patient had a dressing over the existing tract from the previous abscess drain catheter, and the dressing was noted to be saturated with purulent drainage. Therefore, the needle was removed and the patient transferred to interventional radiology, placed supine on the fluoroscopy table. After another sterile prep and drape of the right lower quadrant region, lidocaine was injected subcutaneously at the exit site for the original drainage catheter. A Kumpe catheter was then used to carefully probe the tract during which time gentle injections of half strength contrast were performed. The sinus tract was opacified retrograde all the way to the area of contrast collected in the cecum. With minimal difficulty, the Kumpe catheter was advanced to the location of the abscess pocket by sinography. Catheter was then exchanged over wire for a 10 [place]err[place]ian pigtail drain. Pigtail was formed and the pigtail anchored with 3-0 Prolene. An aspirate of 5 cc pus was sent for culture and Gram stain. Patient tolerated the procedure well. Conscious sedation: Under physician supervision, Versed 1 mg, fentanyl 50 mcg were administered intravenously for conscious sedation. Vital signs, including pulse oximetry, heart rate and blood pressure, continuously monitored by nursing present in the room. Physicians spent 30 minutes [id number] sedation time with the patient. Contrast: Omnipaque 350, 15 cc. Fluoroscopy: 3.1 minutes. Impression: 1. Unable to target abscess directly with CT. 2. Sinogram of fistulous tract shows opacification of contrast in a space adjacent to the tip of the cecum. There is oral contrast in the cecum from prior CT and the presence or absence of a colocutaneous fistula cannot be excluded, however none was seen. 3. Placement of 10 [place]ian pigtail drainage catheter along the sinus tract as described, pigtail formed in the abscess pocket near the tip of the cecum. PROCEDURE INTERPRETED AT [facility] DEPARTMENT OF RADIOLOGY Final Report Signed by: Adi Turk M.D.
[2016-08-04] MEDS: ENOXAPARIN 40 MG/0.4 ML SYRINGE SUBCUT SCH (17:28)
[2016-08-04] MEDS: PANTOPRAZOLE 40 MG TABLET PO SCH (17:28)
[2016-08-04] MEDS: DOCUSATE SODIUM 100 MG CAPSULE PO SCH ×2 (17:28→21:32)
[2016-08-04] MEDS: MORPHINE 2 MG/1 ML SYRINGE IV PRN ×2 (17:52→21:40)
[2016-08-04] MEDS: ONDANSETRON 4 MG/2 ML VIAL IV PRN (21:30)
[2016-08-04] MEDS: INSULIN GLARGINE 100 UNIT/ML SUBCUT SCH (21:32)
[2016-08-05] MEDS: AZTREONAM 1,000 MG in SODIUM CHLORIDE 0.9% 100 ML IV SCH ×3 (01:29→16:50)
[2016-08-05] MEDS: MORPHINE 2 MG/1 ML SYRINGE IV PRN ×3 (01:30→16:45)
[2016-08-05] MEDS: metroNIDAZOLE INJ 500 MG in PREMIX 1 EACH IV SCH ×4 (04:30→23:11)
[2016-08-05] MEDS: CIPROFLOXACIN INJ 400 MG in PREMIX 1 EACH IV SCH ×2 (06:10→19:17)
--- NOTE | 2016-08-05 10:06 | General Surgery Progress Note ---
Assessment and Plan (1) Appendiceal abscess Status: Acute Assessment and plan: He has had subacute appendicitis with abscess which was drained percutaneously. He was admitted because of some drainage from his drain site. I do not see cellulitis of his abdominal wall does do this is difficult to assess because of his morbid obesity. I would continue with antibiotics for now. I was able to review the CT scan report from [facility] but I do not have the films. I think it would be beneficial to wait a few days before repeating the CT scan to see if we are making progress and see if there is anything to drain. By their report there was nothing to drain at this time. I think that the patient is stable and operative intervention at this point would be very morbid for this patient. We will continue with IV antibiotics. We can do cultures from the drain site itself. We can also tailor our therapy based on cultures from his previous admission. 08/03: He feels better. He is not having fever. He has less abdominal pain and drainage from his drain site. We will check a follow-up CT scan of his abdomen. We will stop his IV fluid. 08/04: He looks well clinically and is better clinically after getting IV antibiotics but his CT scan shows an area of phlegmon around his appendix and a discrete abscess near the abdominal wall. I have reviewed this with Dr. Turk from interventional radiology and he feels that he can drain this. We discussed the issues of repeated drainage and antibiotics versus going ahead and doing surgery. I did explain that surgery could be very morbid for him since he has extensive infection in this location and is morbidly obese. He may end up with an open wound that requires packing and prolonged healing and recovery related to this. I think that he would probably be better off with another chance at nonoperative treatment with percutaneous drainage and antibiotics. 08/05: He feels better today status post drainage of the small abscess against his abdominal wall. We will continue IV antibiotics for now. His cultures are pending but are actually growing staph gram-positive cocci. Current Visit: No Subjective Patient reports: Present: feels better, pain is less. Absent: nausea, vomiting , fever Exam - Constitutional Vitals: Period Temp Pulse Resp BP Sys/Cardozo Pulse Ox Last 24 Hr 97.4 F-98.3 F 70-82 15-20 117-150/56-93 94-100 General appearance: no acute distress - Head Head exam: Present: normocephalic - GI/Abdominal GI/Abdominal exam: Present: soft. Absent: distended, tenderness, rebound Results - Labs CBC & BMP: 08/04/16 05:39 08/04/16 05:39 Lab Results: I have reviewed the past 24 hour labs Quality Measures - VTE Contraindication to Pharmacological VTE Prophylaxis: High Risk of Bleeding Specialty Discharge - Follow Up or Referrals Follow up with: Monico Castillo III., MD [Physician] -
[2016-08-05] MEDS: INSULIN REGULAR 100 UNIT/ML SUBCUT SCH ×4 (10:29→21:52)
[2016-08-05] MEDS: PANTOPRAZOLE 40 MG TABLET PO SCH (10:37)
[2016-08-05] MEDS: DOCUSATE SODIUM 100 MG CAPSULE PO SCH ×2 (10:37→21:52)
[2016-08-05] MEDS: CIPROFLOXACIN/DEXAMETHASONE OTIC SUSP 7.5 ML BOTTLE LEFT EAR SCH ×2 (10:38→21:51)
--- NOTE | 2016-08-05 12:35 | Hospitalist Progress Note ---
Hospitalist: Subjective Interval history: Patient reports his pain is controlled. His appetite is improving. No chest pain or shortness of breath. 300 cc out of his drain so far. Fluid is serosanguineous color. No fever. Exam - Constitutional Vitals: Period Temp Pulse Resp BP Sys/Cardozo Pulse Ox Last 24 Hr 97.6 F-98.4 F 70-82 14-20 117-150/56-93 94-100 Exam: A and O x 3, obese, lying in hospital bed RRR no M CTAB nonlabored Soft with right-sided percutaneous drain in place draining serosanguineous fluid. Slight TTP on right without rebound or guarding. Obese abdomen with hypoactive bowel sounds Warm no c/c/e Results - Labs CBC & BMP: 08/04/16 05:39 08/04/16 05:39 - Impressions * Newly diagnosed DM (suspect type 2) - Cont I.S.S. and continue levemir 20U SQ hs. monitor Accu-Cheks today and adjust accordingly - DM education. - TSH wnl but Free T4 elevated. I have had several patient's in house with similar results. Plans to repeat outpatient to see if this is lab error or of any clinical significance and FLP ok LDL <100. * Morbid obesity BMI 43 - recommend dietary and physical activity modifications * Elevated BP-improved - I suspect this is likely due to pain. Pain control. Cont current mgt for now. * Abdominal abscess s/p recent ruptured appendix due to GPC - mgt per primary service. Plans for PCT drain. Cont IV antibiotics and F/U Wound and blood cultures. 08/01 grew B strep and micro tech states that it could not be reported out as it was a nonviable organism. 08/03 blood culture- no growth to date. 08/04 Abd abscess- is growing Beta hemolytic strep. DVT prophylaxis- Lovenox Following along with you. Quality Measures - VTE Contraindication to Pharmacological VTE Prophylaxis: High Risk of Bleeding Specialty Discharge - Follow Up or Referrals Follow up with: Monico Castillo III., MD [Physician] -
[2016-08-05] MEDS: ENOXAPARIN 40 MG/0.4 ML SYRINGE SUBCUT SCH (12:52)
[2016-08-05] MEDS: SODIUM CHLORIDE 0.45% 1,000 ML IV SCH (21:30)
[2016-08-05] MEDS: INSULIN GLARGINE 100 UNIT/ML SUBCUT SCH (21:55)
[2016-08-06] MEDS: AZTREONAM 1,000 MG in SODIUM CHLORIDE 0.9% 100 ML IV SCH ×3 (01:16→17:22)
[2016-08-06] MEDS: metroNIDAZOLE INJ 500 MG in PREMIX 1 EACH IV SCH ×4 (04:08→21:29)
[2016-08-06] MEDS: CIPROFLOXACIN INJ 400 MG in PREMIX 1 EACH IV SCH ×2 (06:05→19:25)
[2016-08-06] MEDS: INSULIN REGULAR 100 UNIT/ML SUBCUT SCH ×4 (08:28→21:29)
[2016-08-06] MEDS: DOCUSATE SODIUM 100 MG CAPSULE PO SCH ×2 (09:17→21:28)
[2016-08-06] MEDS: CIPROFLOXACIN/DEXAMETHASONE OTIC SUSP 7.5 ML BOTTLE LEFT EAR SCH ×2 (09:17→21:29)
[2016-08-06] MEDS: PANTOPRAZOLE 40 MG TABLET PO SCH (09:18)
--- NOTE | 2016-08-06 12:01 | Hospitalist Progress Note ---
Hospitalist: Subjective Interval history: complains of being nauseous most of the day but refused Zofran when nurse offered. Ambulating around the room and off the floor. No cp or SOB. +BM. No fever Exam - Constitutional Vitals: Period Temp Pulse Resp BP Sys/Cardozo Pulse Ox Last 24 Hr 97.6 F-98.6 F 64-92 18-20 101-158/50-85 95-97 Exam: A and O x 3, obese, ambulating in the parra RRR no M CTAB nonlabored Soft with right-sided percutaneous drain in place draining serosanguineous fluid. Slight TTP on right without rebound or guarding. Obese abdomen with hypoactive bowel sounds Warm no c/c/e Results - Labs CBC & BMP: 08/04/16 05:39 08/04/16 05:39 - Impressions * Newly diagnosed DM (suspect type 2) - Cont I.S.S. and continue levemir 20U SQ hs. monitor Accu-Cheks today and adjust accordingly - DM education. - TSH wnl but Free T4 elevated. I have had several patient's in house with similar results. Plans to repeat outpatient to see if this is lab error or of any clinical significance and FLP ok LDL <100. * Morbid obesity BMI 43 - recommend dietary and physical activity modifications * Elevated BP-improved - I suspect this is likely due to pain. Pain control. Cont current mgt for now. * Abdominal abscess s/p recent ruptured appendix due to GPC - mgt per primary service. s/p PCT drain 08/04. Cont IV antibiotics and F/U Wound and blood cultures. 08/01 grew B strep and micro tech states that it could not be reported out as it was a nonviable organism. 08/03 blood culture- no growth to date. 08/04 Abd abscess- is growing Beta hemolytic strep. DVT prophylaxis- Lovenox D/W pt and nurse. All questions answered. Quality Measures - VTE Contraindication to Pharmacological VTE Prophylaxis: High Risk of Bleeding Specialty Discharge - Follow Up or Referrals Follow up with: Monico Castillo III., MD [Physician] -
[2016-08-06] MEDS: ENOXAPARIN 40 MG/0.4 ML SYRINGE SUBCUT SCH (12:11)
[2016-08-06] MEDS: SODIUM CHLORIDE 0.45% 1,000 ML IV SCH (12:12)
--- NOTE | 2016-08-06 12:58 | General Surgery Progress Note ---
Assessment and Plan (1) Subacute appendicitis Status: Acute Assessment and plan: With appendiceal abscess s/p percutaneous drain. Continue drain Continue IV abx - current culture G+cocci; previous cultures e. coli and strep mutans - currently on aztreonam, cipro and flagyl Analgesics PRN Diabetic diet - appreciate hospitalist assistance in mgmt Repeat labs in am DVT ppx: scd and lovenox GI ppx: ppi daily Dispo: pending drain output and clinical response to current mgmt Current Visit: No Subjective Patient reports: Present: no new complaints, pain is less, tolerating a regular diet (Mobilizing in halls.) Exam - Constitutional Vitals: Period Temp Pulse Resp BP Sys/Cardozo Pulse Ox Last 24 Hr 97.6 F-98.9 F 64-92 18-20 101-158/50-85 95-97 General appearance: no acute distress - Eye Eye exam: Absent: conjunctival injection, scleral icterus - GI/Abdominal GI/Abdominal exam: Present: normal bowel sounds, tenderness (mild RLQ tenderness about drain site. ), soft, other (Percutaneous drain intact with purulent drainage; output 30cc past 24 hrs). Absent: distended, firm, guarding - Extremities Exam Extremities exam: Absent: calf tenderness, edema - Neurological Exam Neurological exam: Present: alert, oriented X3 - Skin Skin exam: Present: normal color, warm Results - Labs CBC & BMP: 08/04/16 05:39 08/04/16 05:39 Labs: Cultures: G+cocci Blood culture prelim no growth Quality Measures - VTE Contraindication to Pharmacological VTE Prophylaxis: High Risk of Bleeding Specialty Discharge - Follow Up or Referrals Follow up with: Monico Castillo III., MD [Physician] -
[2016-08-06] MEDS: INSULIN GLARGINE 100 UNIT/ML SUBCUT SCH (21:29)
[2016-08-07] MEDS: AZTREONAM 1,000 MG in SODIUM CHLORIDE 0.9% 100 ML IV SCH ×3 (00:24→18:23)
[2016-08-07] MEDS: MORPHINE 2 MG/1 ML SYRINGE IV PRN (02:58)
[2016-08-07] MEDS: ONDANSETRON 4 MG/2 ML VIAL IV PRN (02:59)
[2016-08-07] MEDS: metroNIDAZOLE INJ 500 MG in PREMIX 1 EACH IV SCH ×3 (04:37→18:23)
[2016-08-07] MEDS: CIPROFLOXACIN INJ 400 MG in PREMIX 1 EACH IV SCH ×2 (05:53→18:24)
[2016-08-07 06:56] LABS: Basophils % 0.4 % (0.0-0.8); Eosinophils # 0.1 10*3/uL (0.0-0.87); Eosinophils % 2.3 % (0.00-10.9); Hematocrit 38.6 VOL% (42.0-52.0); Hemoglobin 12.6 GM/DL (14.0-18.0); Immature Granulocytes % 0.4 %; Immature Granulocytes Absolute 0.02 #; Lymphocytes # 1.8 10*3/uL (1.4-4.0); Lymphocytes % 31.9 % (21.2-54.2); Mean Corpuscular HGB Conc 32.6 GM/DL (32-36); Mean Corpuscular Hemoglobin 28 PG (27-34); Mean Corpuscular Volume 86.2 FL (87-102); Mean Platelet Volume 11.7 FL (9.6-12.0); Monocytes # 0.5 10*3/uL (0.11-0.8); Monocytes % 9.2 % (1.7-12.7); Neutrophils # 3.2 10*3/uL (1.4-7.4); Neutrophils % 55.8 % (38.7-73.9); Platelet Count 216 T/CUMM (130-400); Red Blood Count 4.48 MC/CUMM (3.8-5.5); White Blood Count 5.7 T/CUMM (4-12)
[2016-08-07 07:26] LABS: Calcium 8.2 MG/DL (8.5-10.1); Osmolality,Calculated 280.1 MOS/KG (273-304); Potassium 3.9 MMOL/L (3.5-5.1)
[2016-08-07 07:42] LABS: Albumin 2.6 G/DL (3.4-5.0); Bilirubin,Total 0.4 MG/DL (0.2-1.0); Calcium 8.1 MG/DL (8.5-10.1); Magnesium 2.1 MG/DL (1.8-2.4); Osmolality,Calculated 278.3 MOS/KG (273-304); Phosphorous 4.4 MG/DL (2.5-4.9); Potassium 4.3 MMOL/L (3.5-5.1); Total Protein 6.7 G/DL (6.4-8.3)
--- NOTE | 2016-08-07 08:22 | Hospitalist Progress Note ---
Hospitalist: Subjective Interval history: Pt complains of constipation. No fever. No cp or SOB. Fluid in PCT drain is now yellowish with occasional blood tinged. He states pain and nausea is better. Exam - Constitutional Vitals: Period Temp Pulse Resp BP Sys/Cardozo Pulse Ox Last 24 Hr 97.6 F-98.9 F 68-95 18-20 104-163/55-93 95-97 Exam: A and O x 3, obese, ambulating in the parra RRR no M CTAB nonlabored Soft with right-sided percutaneous drain in place draining light yellow blood tinged fluid. NTTP. Obese abdomen with hypoactive bowel sounds Warm no c/c/e Results - Labs CBC & BMP: 08/07/16 06:05 08/07/16 06:05 - Impressions * Newly diagnosed DM (suspect type 2)- ([id number]). BS better controlled. - Cont I.S.S. and continue levemir 20U SQ hs. monitor Accu-Cheks today and adjust accordingly - DM education. - TSH wnl but Free T4 elevated. I have had several patient's in house with similar results. Plans to repeat outpatient to see if this is lab error or of any clinical significance and FLP ok LDL <100. * Morbid obesity BMI 43 - recommend dietary and physical activity modifications * Elevated BP-improved - I suspect this is likely due to pain. Pain control. Cont current mgt for now. * Abdominal abscess s/p recent ruptured appendix due to GPC - mgt per primary service. s/p PCT drain 08/04. Cont IV antibiotics and F/U Wound and blood cultures. 08/01 grew B strep and micro tech states that it could not be reported out as it was a nonviable organism. 08/03 blood culture- no growth to date. 08/04 Abd abscess- is growing Beta hemolytic strep. * Constipation- add Miralax per pt request DVT prophylaxis- Lovenox D/W pt and nurse. All questions answered. I will be away several days. One of my associates will follow in my absence. Quality Measures - VTE Contraindication to Pharmacological VTE Prophylaxis: High Risk of Bleeding Specialty Discharge - Follow Up or Referrals Follow up with: Monico Castillo III., MD [Physician] -
[2016-08-07] MEDS: INSULIN REGULAR 100 UNIT/ML SUBCUT SCH ×4 (12:06→21:50)
[2016-08-07] MEDS: CIPROFLOXACIN/DEXAMETHASONE OTIC SUSP 7.5 ML BOTTLE LEFT EAR SCH ×2 (12:07→21:05)
[2016-08-07] MEDS: DOCUSATE SODIUM 100 MG CAPSULE PO SCH ×2 (12:08→21:05)
[2016-08-07] MEDS: PANTOPRAZOLE 40 MG TABLET PO SCH (12:08)
[2016-08-07] MEDS: ENOXAPARIN 40 MG/0.4 ML SYRINGE SUBCUT SCH (12:09)
--- NOTE | 2016-08-07 14:14 | General Surgery Progress Note ---
Assessment and Plan (1) Acute appendicitis with appendiceal abscess Problem details: f/u CT scan shows increasing size of periappendiceal collection Status: Acute Assessment and plan: Impression: Appendiceal abscess Plan: Patient appears to be improving. He is feeling much better. He is ambulating well tolerating a diet and his pain is well controlled. The percutaneous drainage has purulent fluid present. We will continue percutaneous drainage and antibiotics through the weekend. Current Visit: No Subjective Patient reports: Present: feels better Exam - Constitutional Vitals: Period Temp Pulse Resp BP Sys/Cardozo Pulse Ox Last 24 Hr 97.6 F-98.6 F 68-95 18-20 104-163/55-93 95-97 General appearance: no acute distress - Head Head exam: Present: normocephalic - Neck Neck exam: Present: normal inspection - Respiratory Respiratory exam: Present: clear to auscultation bilaterally - Cardiovascular Cardiovascular exam: Present: RRR - GI/Abdominal GI/Abdominal exam: Present: soft (Improved tenderness. Tolerating a diet. No distention.) - Extremities Exam Extremities exam: Present: normal inspection - Back Exam Back exam: Present: normal inspection - Neurological Exam Neurological exam: Present: alert, oriented X3 Speech: Present: normal - Skin Skin exam: Present: normal color Results - Labs CBC & BMP: 08/07/16 06:05 08/07/16 06:05 Lab Results: I have reviewed the past 24 hour labs Quality Measures - VTE Contraindication to Pharmacological VTE Prophylaxis: High Risk of Bleeding Specialty Discharge - Follow Up or Referrals Follow up with: Monico Castillo III., MD [Physician] -
[2016-08-07] MEDS: POLYETHYLENE GLYCOL POWDER 17 GM PACK PO SCH (16:10)
[2016-08-07] MEDS: CIPROFLOXACIN 500 MG TABLET PO SCH (21:05)
[2016-08-07] MEDS: INSULIN GLARGINE 100 UNIT/ML SUBCUT SCH (21:49)
[2016-08-07] MEDS: metroNIDAZOLE 500 MG TABLET PO SCH (23:55)
[2016-08-08] MEDS: AZTREONAM 1,000 MG in SODIUM CHLORIDE 0.9% 100 ML IV SCH ×3 (05:43→16:42)
[2016-08-08] MEDS: metroNIDAZOLE 500 MG TABLET PO SCH ×4 (05:43→23:31)
[2016-08-08] MEDS: INSULIN REGULAR 100 UNIT/ML SUBCUT SCH ×4 (10:04→20:36)
--- NOTE | 2016-08-08 10:05 | Hospitalist Progress Note ---
Assessment and Plan (1) Diabetes Status: Acute Assessment and plan: The patient's diabetes is well-controlled this time. The patient continues on oral antibiotics and with percutaneous drainage of appendiceal abscess. Will recheck electrolytes and CBC tomorrow. Current Visit: Yes Qualifiers: Diabetes mellitus type: type 2 Diabetes mellitus complication status: without complication Diabetes mellitus penitentiary insulin use: without penitentiary use Qualified Code(s): E11.9 - Type 2 diabetes mellitus without complications (2) Acute appendicitis with appendiceal abscess Problem details: f/u CT scan shows increasing size of periappendiceal collection Status: Acute Current Visit: No Hospitalist: Subjective Interval history: The patient has acute appendicitis and is being treated with antibiotics and percutaneous drainage. The patient continues to improve a little each day and is afebrile. The patient has less abdominal pain. The patient lost IV access yesterday evening and is now on oral Flagyl and oral Cipro medication. Exam - Constitutional Vitals: Period Temp Pulse Resp BP Sys/Cardozo Pulse Ox Last 24 Hr 97.5 F-98.6 F 58-83 14-20 103-142/53-83 95-96 Exam: Constitutional System: Mild distress on account of tenderness at the catheter site. No tremulousness. Head: Normocephalic, atraumatic. Ears, Nose and Throat System: No evidence of Otitis or Mastoiditis. No epistaxis or discharge Eyes System: Pupils equal, round, and reactive. Extraocular muscles intact. Neck: Supple, without adenopathy, No jugular venous distention. No thyromegaly , neck mass, or prior surgery apparent. Respiratory System: Chest clear to auscultation. Cardiovascular System: Heart with regular rate and rhythm. No murmur. GI System: Abdomen soft, mildly tender. Normo active bowel sounds present. Musculoskeletal System: limbs with no pedal edema. Full distal pulses. Neurological System: No discernable sensory deficit. No aphasia Psychiatric System: Conversation is rational Results - Labs CBC & BMP: 08/07/16 06:05 08/07/16 06:05 Lab Results: I have reviewed the past 24 hour labs Quality Measures - VTE Contraindication to Pharmacological VTE Prophylaxis: High Risk of Bleeding Specialty Discharge - Follow Up or Referrals Follow up with: Monico Castillo III., MD [Physician] -
[2016-08-08] MEDS: CIPROFLOXACIN/DEXAMETHASONE OTIC SUSP 7.5 ML BOTTLE LEFT EAR SCH ×2 (11:11→20:36)
[2016-08-08] MEDS: POLYETHYLENE GLYCOL POWDER 17 GM PACK PO SCH (11:11)
[2016-08-08] MEDS: ENOXAPARIN 40 MG/0.4 ML SYRINGE SUBCUT SCH (11:13)
[2016-08-08] MEDS: DOCUSATE SODIUM 100 MG CAPSULE PO SCH ×2 (11:13→20:37)
[2016-08-08] MEDS: PANTOPRAZOLE 40 MG TABLET PO SCH (11:14)
[2016-08-08] MEDS: CIPROFLOXACIN 500 MG TABLET PO SCH ×2 (11:14→20:37)
--- NOTE | 2016-08-08 11:45 | General Surgery Progress Note ---
Assessment and Plan (1) Acute appendicitis with appendiceal abscess Problem details: f/u CT scan shows increasing size of periappendiceal collection Status: Acute Assessment and plan: Impression: Appendiceal abscess Plan: Patient appears to be improving. He is feeling much better. He is ambulating well tolerating a diet and his pain is well controlled. The percutaneous drainage has purulent fluid present. IV access was lost and multiple attempts were made at peripheral IV. His antibiotics have been transitioned to p.o. We will continue p.o. antibiotics and recheck his labs tomorrow. He may be doing well enough to go home but if he needs to stay he may require central line placement for IV antibiotics. Current Visit: No Subjective Patient reports: Present: no new complaints Narrative: Patient says he continues to improve and is feeling better. He has been tolerating a diet and ambulating. Exam - Constitutional Vitals: Period Temp Pulse Resp BP Sys/Cardozo Pulse Ox Last 24 Hr 97.5 F-98.6 F 58-83 14-20 103-142/53-83 95-96 General appearance: no acute distress - Head Head exam: Present: normocephalic - Respiratory Respiratory exam: Present: clear to auscultation bilaterally - Cardiovascular Cardiovascular exam: Present: RRR - GI/Abdominal GI/Abdominal exam: Present: soft (Mild tenderness in the right lower quadrant. Percutaneous drain with purulent fluid.) - Extremities Exam Extremities exam: Present: normal inspection - Neurological Exam Neurological exam: Present: alert, oriented X3 Speech: Present: normal - Skin Skin exam: Present: normal color Results - Labs CBC & BMP: 08/07/16 06:05 08/07/16 06:05 Quality Measures - VTE Contraindication to Pharmacological VTE Prophylaxis: High Risk of Bleeding Specialty Discharge - Follow Up or Referrals Follow up with: Monico Castillo III., MD [Physician] -
[2016-08-08] MEDS: INSULIN GLARGINE 100 UNIT/ML SUBCUT SCH (20:36)
[2016-08-09] MEDS: AZTREONAM 1,000 MG in SODIUM CHLORIDE 0.9% 100 ML IV SCH ×2 (00:05→09:12)
[2016-08-09 05:17] LABS: Basophils # 0.1 10*3/uL (0.0-0.2); Basophils % 0.8 % (0.0-0.8); Eosinophils # 0.2 10*3/uL (0.0-0.87); Eosinophils % 2.7 % (0.00-10.9); Hematocrit 41.5 VOL% (42.0-52.0); Hemoglobin 13.4 GM/DL (14.0-18.0); Immature Granulocytes % 0.4 %; Immature Granulocytes Absolute 0.03 #; Lymphocytes # 2.6 10*3/uL (1.4-4.0); Lymphocytes % 32.8 % (21.2-54.2); Mean Corpuscular HGB Conc 32.3 GM/DL (32-36); Mean Corpuscular Hemoglobin 28 PG (27-34); Mean Corpuscular Volume 87.7 FL (87-102); Mean Platelet Volume 11.7 FL (9.6-12.0); Monocytes # 0.8 10*3/uL (0.11-0.8); Monocytes % 9.7 % (1.7-12.7); Neutrophils # 4.2 10*3/uL (1.4-7.4); Neutrophils % 53.6 % (38.7-73.9); Platelet Count 231 T/CUMM (130-400); Red Blood Count 4.73 MC/CUMM (3.8-5.5); Red Cell Distribution Width 13.2 % (9.3-17.3); White Blood Count 7.8 T/CUMM (4-12)
[2016-08-09] MEDS: metroNIDAZOLE 500 MG TABLET PO SCH ×2 (05:38→12:08)
[2016-08-09 05:52] LABS: Calcium 8.2 MG/DL (8.5-10.1); Magnesium 2.3 MG/DL (1.8-2.4); Osmolality,Calculated 282.3 MOS/KG (273-304); Potassium 4.1 MMOL/L (3.5-5.1)
--- NOTE | 2016-08-09 09:02 | General Surgery Progress Note ---
Assessment and Plan - Time spent with patient Time spent with patient: Less than 30 minutes (1) Appendiceal abscess Status: Acute Assessment and plan: He has had subacute appendicitis with abscess which was drained percutaneously. He was admitted because of some drainage from his drain site. I do not see cellulitis of his abdominal wall does do this is difficult to assess because of his morbid obesity. I would continue with antibiotics for now. I was able to review the CT scan report from [facility] but I do not have the films. I think it would be beneficial to wait a few days before repeating the CT scan to see if we are making progress and see if there is anything to drain. By their report there was nothing to drain at this time. I think that the patient is stable and operative intervention at this point would be very morbid for this patient. We will continue with IV antibiotics. We can do cultures from the drain site itself. We can also tailor our therapy based on cultures from his previous admission. 08/03: He feels better. He is not having fever. He has less abdominal pain and drainage from his drain site. We will check a follow-up CT scan of his abdomen. We will stop his IV fluid. 08/04: He looks well clinically and is better clinically after getting IV antibiotics but his CT scan shows an area of phlegmon around his appendix and a discrete abscess near the abdominal wall. I have reviewed this with Dr. Turk from interventional radiology and he feels that he can drain this. We discussed the issues of repeated drainage and antibiotics versus going ahead and doing surgery. I did explain that surgery could be very morbid for him since he has extensive infection in this location and is morbidly obese. He may end up with an open wound that requires packing and prolonged healing and recovery related to this. I think that he would probably be better off with another chance at nonoperative treatment with percutaneous drainage and antibiotics. 08/05: He feels better today status post drainage of the small abscess against his abdominal wall. We will continue IV antibiotics for now. His cultures are pending but are actually growing staph gram-positive cocci. 08/09: He has no abdominal pain feels well. He feels ready for discharge which I agree with. We can discharge him home on antibiotics by mouth and I am going to leave his drain in place. We can remove this in about a week or so in the office. Current Visit: No Subjective Patient reports: Present: feels better. Absent: still having pain, nausea, vomiting, fever Exam - Constitutional Vitals: Period Temp Pulse Resp BP Sys/Cardozo Pulse Ox Last 24 Hr 96.9 F-98.2 F 67-88 18-20 109-142/59-89 93-98 General appearance: no acute distress - GI/Abdominal GI/Abdominal exam: Present: soft. Absent: distended, tenderness, rebound Results - Labs CBC & BMP: 08/09/16 04:03 08/09/16 04:03 Lab Results: I have reviewed the past 24 hour labs Quality Measures - VTE Contraindication to Pharmacological VTE Prophylaxis: High Risk of Bleeding Specialty Discharge - Follow Up or Referrals Follow up with: Monico Castillo III., MD [Physician] - 08/19/16 1:30 am
[2016-08-09] MEDS: CIPROFLOXACIN 500 MG TABLET PO SCH (09:11)
[2016-08-09] MEDS: CIPROFLOXACIN/DEXAMETHASONE OTIC SUSP 7.5 ML BOTTLE LEFT EAR SCH (09:12)
[2016-08-09] MEDS: POLYETHYLENE GLYCOL POWDER 17 GM PACK PO SCH (09:12)
[2016-08-09] MEDS: DOCUSATE SODIUM 100 MG CAPSULE PO SCH (09:12)
[2016-08-09] MEDS: PANTOPRAZOLE 40 MG TABLET PO SCH (09:13)
--- NOTE | 2016-08-09 10:09 | Discharge Summary ---
<Zac Dugan - Last Filed: 08/09/16 10:32> Diagnosis - Discharge Diagnosis (1) Diabetes Status: Acute (2) Acute appendicitis with appendiceal abscess Status: Acute Specialty Discharge - Follow Up or Referrals Follow up with: Monico Castillo III., MD [Physician] - 08/19/16 1:30 am Discharge Plan - Discharge Data Disposition: Disch To Home/Self Care - Discharge Medications New Ciprofloxacin Tab [Cipro Tab] 500 mg PO Q12HR #28 tablet Ciprofloxacin/Dexameth Otic [Ciprodex Otic Susp] 4 drop LEFT EAR BID #1 bottle HYDROcodone/ACETAMIN 7.5-325 [[place] 7.5-325] 1 tablet PO Q6H PRN #30 tablet PRN Reason: Pain Moderate To Severe (4-10) metroNIDAZOLE TAB [Flagyl Cap/Tab] 500 mg PO Q8H #42 tablet glipiZIDE [Glipizide] 5 mg PO DAILY #60 tablet metFORMIN [Glucophage] 500 mg PO DAILY W/BREAKFAST #60 tablet - Follow Up or Referral Follow Up: Monico Castillo III., MD [Physician] - 08/19/16 1:30 am - Forms/Instructions Instructions: Diabetes Mellitus Type 2 in Adults (DC), Abscess (GEN) Exam - Constitutional Vitals: Period Temp Pulse Resp BP Sys/Cardozo Pulse Ox Last 24 Hr 96.9 F-98.2 F 67-88 18-20 109-142/59-89 93-98 Discharge Results Labs on day of discharge: Labs from last 24 hours 08/09/16 08/09/16 08/09/16 07:14 04:03 04:03 WBC 7.8 D RBC 4.73 Hgb 13.4 L Hct 41.5 L MCV 87.7 MCH 28 MCHC 32.3 RDW 13.2 Plt Count 231 MPV 11.7 Neut % (Auto) 53.6 Lymph % (Auto) 32.8 [place] % (Auto) 9.7 Eos % (Auto) 2.7 Baso % (Auto) 0.8 Neut # (Auto) 4.2 Lymph # (Auto) 2.6 [place] # (Auto) 0.8 Eos # (Auto) 0.2 Baso # (Auto) 0.1 Immature Gran % 0.4 Nucleated RBC % 0.0 Immature Gran # 0.03 Nucleated RBCs # 0.00 Sodium 141 Potassium 4.1 Chloride 102 Carbon Dioxide 30 Anion Gap 13.1 BUN 9 Creatinine 0.70 GFR Calculation 189 BUN/Creatinine Ratio 12.00 Glucose 144 H POC Glucose 146 H Calculated Osmolality 282.3 Calcium 8.2 L Magnesium 2.3 08/08/16 08/08/16 08/08/16 20:07 15:58 12:29 WBC RBC Hgb Hct MCV MCH MCHC RDW Plt Count MPV Neut % (Auto) Lymph % (Auto) [place] % (Auto) Eos % (Auto) Baso % (Auto) Neut # (Auto) Lymph # (Auto) [place] # (Auto) Eos # (Auto) Baso # (Auto) Immature Gran % Nucleated RBC % Immature Gran # Nucleated RBCs # Sodium Potassium Chloride Carbon Dioxide Anion Gap BUN Creatinine GFR Calculation BUN/Creatinine Ratio Glucose POC Glucose 206 H 162 H 179 H Calculated Osmolality Calcium Magnesium DS: Provider Date of admission: 08/01/16 16:11 Primary care physician: Joseph Arvizu MD Attending physician on admission: Monico Castillo III., Consults: 08/01/16 17:13 Consult to Pharmacy [CONS] Routine Reason for Pharmacy Consult: Adjust Meds Renal Funct 08/03/16 09:26 Consult to Physician [CONS] Routine Comment: new dx DM Consulting Provider: Didier Leyva Consulting Provider Notified: Yes When should Consulting Provider be notified: Now Person Notified: mor called Date Notified: 08/03/16 Time Notified: 10:11 08/03/16 09:27 Consult to [facility], Educator [CONS] Routine Reason for Dental Equipment Technician: Diabetes Education Consult Comment: new dx Discharging clinician: Zac Dugan MD <Bree Samuel - Last Filed: 08/09/16 15:35> Hospital Course - Hospital Course Hospital Course: The patient was readmitted with appendiceal abscess. Percutaneous drain replaced. Pt responded well clinically to IV abx. Cultures strep aginosus - camacho sensitive. He was ultimately discharged in good condition with percutaneous drain in place on oral abx - cipro and flagyl - to f/u with Dr. Castillo 1-2 wk. No complications to note. Additionally, patient with new diagnosis diabetes mellitus and new medication regimen initiated. Pt provided DM education and recommended f/u PCP at [facility]. Pt was receptive. Diagnosis - Discharge Diagnosis (1) Subacute appendicitis Status: Acute (2) Diabetes mellitus type 2 in obese Status: Acute Discharge Plan - Discharge Data Condition at Discharge: Stable Discharge Diet: diabetic diet Activity: no lifting (Avoid sweating. ) Hygiene: may shower Driving: other (No driving while taking narcotics) Contact your physician if you experience:: fever over 101, Difficulty voiding, Redness or swelling, Nausea/Vomiting, Shortness of breath, Bleeding, pain uncontrolled by pain medications Wound / Dressing Care Instructions: Change drain dressing daily. May shower - do not aggressively rub, submerge or soak wound. - Forms/Instructions Additional Discharge Instructions: -Percutaneous drain care as reviewed. Keep log of amount of fluid removed daily and bring to follow up appointment. -F/u PCP 7-10 days re: new dx diabetes mellitus and left otitis externa
--- NOTE | 2016-08-09 10:37 | Hospitalist Progress Note ---
Assessment and Plan (1) Diabetes Status: Acute Assessment and plan: The patient's diabetes is well-controlled this time. The patient continues on oral antibiotics and with percutaneous drainage of appendiceal abscess. The patient is now discharged home and I am going to change the injected insulin to her regimen including metformin 500 mg daily and glipizide 5 mg daily. Current Visit: Yes Qualifiers: Diabetes mellitus type: type 2 Diabetes mellitus complication status: without complication Diabetes mellitus terminal block assembler insulin use: without senior living use Qualified Code(s): E11.9 - Type 2 diabetes mellitus without complications (2) Acute appendicitis with appendiceal abscess Problem details: f/u CT scan shows increasing size of periappendiceal collection Status: Acute Current Visit: No Hospitalist: Subjective Interval history: The patient is discharged home today. I coordinated care with Bree Devries concerning the patient's diabetes medications. The patient will be prescribed metformin and glipizide as outpatient. Exam - Constitutional Vitals: Period Temp Pulse Resp BP Sys/Cardozo Pulse Ox Last 24 Hr 96.9 F-98.2 F 67-88 18-20 109-142/59-89 93-98 Exam: Constitutional System: Mild distress on account of tenderness at the catheter site. No tremulousness. Head: Normocephalic, atraumatic. Ears, Nose and Throat System: No evidence of Otitis or Mastoiditis. No epistaxis or discharge Eyes System: Pupils equal, round, and reactive. Extraocular muscles intact. Neck: Supple, without adenopathy, No jugular venous distention. No thyromegaly , neck mass, or prior surgery apparent. Respiratory System: Chest clear to auscultation. Cardiovascular System: Heart with regular rate and rhythm. No murmur. GI System: Abdomen soft, mildly tender. Normo active bowel sounds present. Musculoskeletal System: limbs with no pedal edema. Full distal pulses. Neurological System: No discernable sensory deficit. No aphasia Psychiatric System: Conversation is rational Results - Labs CBC & BMP: 08/09/16 04:03 08/09/16 04:03 Quality Measures - VTE Contraindication to Pharmacological VTE Prophylaxis: High Risk of Bleeding Specialty Discharge - Follow Up or Referrals Follow up with: Monico Castillo III., MD [Physician] - 08/19/16 1:30 am
[2016-08-09] MEDS: INSULIN REGULAR 100 UNIT/ML SUBCUT SCH ×2 (10:55→12:08)
[2016-08-09] MEDS: ENOXAPARIN 40 MG/0.4 ML SYRINGE SUBCUT SCH (11:09)
[2016-08-09 11:39] VITALS: BP 126/68
== END 2016-08-09 13:15 | disposition home or self-care (01) | DRG 372 ==
LOC: EDBD → EDUNIT# → N.ED 14:47 → N.EDINP 17:05 → N.3E 17:08
PROVIDERS: ADMIT Surgery; ATTEND Surgery